=== PATIENT | female | born 1965 | race Caucasian/White ===

== ENCOUNTER 2021-02-20 09:16 | Inpatient (IN) ==
[2021-02-20] MEDS ORDERED: PIPERACILLIN/TAZOBACTAM 4.5 GM/120 ML BAG IV ONE (09:41)
[2021-02-20] MEDS ORDERED: PIPERACILL/TAZOBAC CONSULT ACTIVE PRN ×3 (09:41→16:12)
[2021-02-20] MEDS ORDERED: SODIUM CHLORIDE 0.9% 1000ML 1,000 ML IV ONE (09:41)
[2021-02-20 09:43] LABS: Basophils # (auto) 0.01 K/uL (0-0.2); Basophils % (auto) 0.1 %; Eosinophils # (auto) 0.09 K/uL (0-0.5); Eosinophils % (auto) 0.6 %; Hematocrit (blood only) 37.3 % (37-47); Hemoglobin 12.8 g/dL (12.0-16.0); Immature Granulocytes # (auto) 0.04 K/uL (0.00-0.02); Immature Granulocytes % (auto) 0.3 %; Lymphocytes # (auto) 1.62 K/uL (1.2-3.4); Lymphocytes % (auto) 10.3 %; Mean Corpuscular Hemoglobin 28.8 pg (25-34); Mean Corpuscular Hgb Conc 34.3 g/dL (32-36); Mean Corpuscular Volume 83.8 fL (80-100); Monocytes # (auto) 0.54 K/uL (0.11-0.59); Monocytes % (auto) 3.4 %; Neutrophils # (auto) 13.44 K/uL (1.4-6.5); Neutrophils % (auto) 85.3 %; Platelet Count 299 K/uL (130-400); RDW Coefficient of Variation 14.5 % (11.5-14.5); RDW Standard Deviation 44.4 fL (36.4-46.3); Red Blood Count 4.45 M/uL (4.2-5.4); White Blood Count 15.74 K/uL (4.8-10.8)
[2021-02-20 10:00] LABS: Alanine Aminotransferase 17 U/L (12-78); Albumin Level 2.6 gm/dl (3.4-5.0); Aspartate Aminotransferase 30 U/L (15-37); BUN Creatinine Ratio 24.2 (10-20); Blood Urea Nitrogen 20 mg/dl (7-18); Calcium 9.3 mg/dl (8.5-10.1); Carbon Dioxide 22 mmol/L (21-32); Chloride 97 mmol/L (98-107); Creatinine Clr Calc Pharmacy 72.8 ml/min; Est GFR (African American) 91.3 ml/min; Est GFR (Non-African American) 78.8 ml/min; Glucose 123 mg/dl (70-99); Potassium 3.3 mmol/L (3.5-5.1); Sodium 133 mmol/L (136-145)
[2021-02-20 10:05] LABS: Albumin Globulin Ratio 0.5 (0.9-2); Alkaline Phosphatase 122 U/L (45-117); Bilirubin,Total 0.9 mg/dl (0.2-1); Globulin 5.8 gm/dl (2.5-4.0); NT Pro B Type Natriuretic Pept 622 pg/ml (0-900); Total Protein 8.4 gm/dl (6.4-8.2); Troponin I < 0.015 ng/ml (0-0.045)
--- NOTE | 2021-02-20 10:17 | XRay Report ---
XR chest 1V portable CLINICAL HISTORY: Dyspnea COMPARISON STUDY: No previous studies for comparison. FINDINGS: There is no pneumothorax or pleural effusion. Lung volumes are mildly diminished. There is interstitial thickening and bilateral opacities, greater within the left lung. Cardiac size is normal . Mediastinal contours are normal. IMPRESSION: Interstitial thickening and bilateral opacities, greater within the left lung. The findi ngs favor an infectious process such as viral pneumonia. Radiographic follow-up to ensure resolution is recommended. ACT 112: Negative or not required by law. Electronically signed by: Nikita Doyle M.D. 02/20/2021 10:15 AM
[2021-02-20] MEDS ORDERED: ALBUT/IPRATROP 3MG/0.5MG NEB 3 ML VIAL NEB STA (10:50)
--- NOTE | 2021-02-20 10:53 | Emergency Department Note ---
History of Present Illness General Chief complaint: Shortness of Breath/Dyspnea Stated complaint: OPEN WOUND ON R FOOT, SOB Time Seen by Provider: 02/20/21 09:33 History of Present Illness 55-year-old female presents to the ED with a chief complaint of shortness of breath. The patient states that she has been feeling short of breath since Thursday or Thursday. She states that she is typically treated at [facility] but they were on divert so she was brought here. The patient states that she had a right foot ulceration that busted open on Thursday. She has been taking Keflex for this. She reports some associated nausea and vomiting. She reports increased shortness of breath. She has a history of eosinophilic asthma. EMS brought her in to the ED for evaluation. She was 80% saturations on room air. She does not use oxygen at home. She also reports she has not taken her usual medications for the past 4 to 5 days. Home Medications Medication Instructions Recorded Confirmed Type budesonide-formoterol HFA 160 2 puff INHALATION BID 02/20/21 02/20/21 History mcg-4.5 mcg/actuation aerosol inhaler (Symbicort) cephalexin 500 mg capsule 500 mg PO QID 02/20/21 02/20/21 History cetirizine 10 mg tablet 10 mg PO DAILY 02/20/21 02/20/21 History clonidine 0.3 mg/24 hr weekly 0.3 mg TOPICAL WK 02/20/21 02/20/21 History transdermal patch hydroxychloroquine 200 mg tablet 200 mg PO BID 02/20/21 02/20/21 History labetalol 100 mg tablet 100 mg PO Q12H 02/20/21 02/20/21 History montelukast 10 mg tablet 10 mg PO PM 02/20/21 02/20/21 History naproxen 500 mg tablet 1,000 mg PO DAILY 02/20/21 02/20/21 History omeprazole 20 mg capsule,delayed 20 mg PO DAILY 02/20/21 02/20/21 History release ondansetron 4 mg disintegrating 4 mg PO Q8H PRN 02/20/21 02/20/21 History tablet Allergies Allergy/AdvReac Type Severity Reaction Status Date / Time azithromycin Allergy Severe Entire Arm Unverified 02/20/21 10:55 Swelling Opioids - Morphine Analogues AdvReac Severe Vomiting/ Unverified 02/20/21 10:55 "It makes my skin crawl" Opioids-Meperidine and AdvReac Severe Vomiting/ Unverified 02/20/21 10:55 Related "It makes my skin crawl" Opioids-Methadone and Related AdvReac Severe Vomiting/ Unverified 02/20/21 10:55 "It makes my skin crawl" Past Med/Surg History Social History Smoking Status: Former smoker Review of Systems A total of 10 systems reviewed and were otherwise negative Physical Exam Vital Signs Vital Signs - 24 hr 02/20/21 09:05 02/20/21 09:06 02/20/21 09:23 Temperature 37.5 C Temperature Source Oral Pulse Rate 86 Pulse Rate [Radial] Pulse Rhythm Regular Pulse Strength Normal Respiratory Rate 24 Respiratory Effort / Characteristics Spontaneous Labored Short of Breath SOB on Exertion Spontaneous Labored Short of Breath SOB on Exertion Respiratory Depth Deep Deep Respiratory Pattern Regular Tachypnea Regular Blood Pressure [Right Arm] 197/92 H Blood Pressure Mean [Right Arm] 127 Blood Pressure Position [Right Arm] Lying Pulse Oximetry 84 L 82 L Oxygen Delivery Method Room Air Room Air Oxygen Flow Rate 0 Sepsis Recent Fever Within 48 Hours Yes Sepsis New/Unexplained Change in Mental Status No Sepsis Action Taken by Nursing No Action Required Oxygen Flow Rate - Titration 5 Pulse Oximetry Post Tiitration 91 02/20/21 09:55 02/20/21 11:09 02/20/21 11:18 Temperature Temperature Source Pulse Rate Pulse Rate [Radial] 77 70 Pulse Rhythm Pulse Strength Respiratory Rate 22 20 Respiratory Effort / Characteristics Spontaneous Respiratory Depth Respiratory Pattern Blood Pressure [Right Arm] 183/92 H Blood Pressure Mean [Right Arm] 122 Blood Pressure Position [Right Arm] Pulse Oximetry 72 L 93 89 L Oxygen Delivery Method Room Air Nasal Cannula Nasal Cannula Oxygen Flow Rate 5 5 Sepsis Recent Fever Within 48 Hours Sepsis New/Unexplained Change in Mental Status Sepsis Action Taken by Nursing Oxygen Flow Rate - Titration Pulse Oximetry Post Tiitration CONSTITUTIONAL/VITAL SIGNS: Reviewed / noted above. GENERAL: Non-toxic in appearance. INTEGUMENTARY: Warm, dry, and [place]. HEAD: Normocephalic. EYES: without scleral icterus or trauma. ENT/OROPHARYNX: clear and moist. LYMPHADENOPATHY/NECK: Is supple without lymphadenopathy or meningismus. RESPIRATORY: Diminished but clear bilaterally. Some scattered wheezes and crackles. Mild increased increased work of breathing. CARDIOVASCULAR: Regular rate and rhythm. GI/ABDOMEN: Soft and nontender. No organomegaly or pulsatile mass. EXTREMITIES: Warm and well perfused. There is a ruptured blister on the bottom of the right foot that appears to be mildly erythematous. BACK: No CVA tenderness. NEUROLOGICAL: Intact without focal deficits. PSYCHIATRIC: normal affect. MUSCULOSKELETAL: Normally developed with good muscle tone. TRIAGE NURSING DOCUMENTATION REVIEWED. Course Administered Medications Discontinued Medications Albuterol (Albut/Ipratrop 3mg/0.5mg Neb 3 Ml Vial) 3 ml NEB NOW STA Stop: 02/20/21 10:51 Last Admin: 02/20/21 11:17 Dose: 3 ml Documented by: [id number] Piperacillin Sod/Tazobactam Sod (Zosyn) 4.5 gm in 120 mls @ 240 mls/hr IV NOW ONE Stop: 02/20/21 10:10 Last Admin: 02/20/21 11:05 Dose: 240 mls/hr Documented by: [id number] Sodium Chloride (Nss 1000ml) 1,000 mls @ 999 mls/hr IV .Q1H1M ONE Stop: 02/20/21 10:41 Last Admin: 02/20/21 11:06 Dose: 999 mls/hr Documented by: [id number] Critical Care Time Critical Care Time: Yes I have personally spent 30 minutes of critical care time in the direct management of this patient. This includes bedside care, interpretation of diagnostic studies, and testing, discussion with consultants, patient, and family members, and other required patient management activities. This 30 minutes is in excess of all separately billable procedures. Medical Decision Making Differential Diagnosis The differential was considered includes acute myocardial infarction, acute coronary syndrome, myocarditis, pericarditis, pericardial effusions /tamponad, esophageal perforation, pulmonary embolism, pneumonia, pneumothorax, cardiomyopathy, congestive heart, anemia , COPD/asthma exacerbation. Medical Records Attestation: I reviewed the patient's medical records. Home Medications Current Medication List: was personally reviewed by me Laboratory Data Attestation: I reviewed the patient's lab results. Result diagrams: 02/20/21 09:10 02/20/21 09:10 Lab Results 02/20/21 02/20/21 02/20/21 Range/Units 09:10 09:10 09:10 WBC 15.74 H (4.8-10.8) K/uL RBC 4.45 (4.2-5.4) M/uL Hgb 12.8 (12.0-16.0) g/dL Hct 37.3 (37-47) % MCV 83.8 (80-100) fL MCH 28.8 (25-34) pg MCHC 34.3 (32-36) g/dL RDW Std Deviation 44.4 (36.4-46.3) fL RDW Coeff of Rohit 14.5 (11.5-14.5) % Plt Count 299 (130-400) K/uL MPV 11.0 H (7.4-10.4) fL Immature Gran % (Auto) 0.3 % Neut % (Auto) 85.3 % Lymph % (Auto) 10.3 % [place] % (Auto) 3.4 % Eos % (Auto) 0.6 % Baso % (Auto) 0.1 % Neut # (Auto) 13.44 H (1.4-6.5) K/uL Lymph # (Auto) 1.62 (1.2-3.4) K/uL [place] # (Auto) 0.54 (0.11-0.59) K/uL Eos # (Auto) 0.09 (0-0.5) K/uL Baso # (Auto) 0.01 (0-0.2) K/uL Immature Gran # (Auto) 0.04 H (0.00-0.02) K/uL PT Cancelled INR Cancelled APTT Cancelled PTT Ratio Cancelled Sodium 133 L (136-145) mmol/L Potassium 3.3 L (3.5-5.1) mmol/L Chloride 97 L (98-107) mmol/L Carbon Dioxide 22 (21-32) mmol/L Anion Gap 13.0 H (3-11) BUN 20 H (7-18) mg/dl Creatinine 0.84 (0.6-1.2) mg/dl Est Cr Clr Drug Dosing 72.8 ml/min Est GFR ( Amer) 91.3 ml/min Est GFR (Non-Af Amer) 78.8 ml/min BUN/Creatinine Ratio 24.2 H (10-20) Glucose 123 H (70-99) mg/dl Lactate (0.4-2.0) mmol/L Calcium 9.3 (8.5-10.1) mg/dl Total Bilirubin 0.9 (0.2-1) mg/dl AST 30 (15-37) U/L ALT 17 (12-78) U/L Alkaline Phosphatase 122 H (45-117) U/L Troponin I < 0.015 (0-0.045) ng/ml NT-Pro-B Natriuret Pep 622 (0-900) pg/ml Total Protein 8.4 H (6.4-8.2) gm/dl Albumin 2.6 L (3.4-5.0) gm/dl Globulin 5.8 H (2.5-4.0) gm/dl Albumin/Globulin Ratio 0.5 L (0.9-2) COVID-19 Eval Order SARS-CoV-2 (PCR) (Negative) 02/20/21 02/20/21 02/20/21 Range/Units 09:56 09:56 10:35 WBC (4.8-10.8) K/uL RBC (4.2-5.4) M/uL Hgb (12.0-16.0) g/dL Hct (37-47) % MCV (80-100) fL MCH (25-34) pg MCHC (32-36) g/dL RDW Std Deviation (36.4-46.3) fL RDW Coeff of Rohit (11.5-14.5) % Plt Count (130-400) K/uL MPV (7.4-10.4) fL Immature Gran % (Auto) % Neut % (Auto) % Lymph % (Auto) % [place] % (Auto) % Eos % (Auto) % Baso % (Auto) % Neut # (Auto) (1.4-6.5) K/uL Lymph # (Auto) (1.2-3.4) K/uL [place] # (Auto) (0.11-0.59) K/uL Eos # (Auto) (0-0.5) K/uL Baso # (Auto) (0-0.2) K/uL Immature Gran # (Auto) (0.00-0.02) K/uL PT INR APTT PTT Ratio Sodium (136-145) mmol/L Potassium (3.5-5.1) mmol/L Chloride (98-107) mmol/L Carbon Dioxide (21-32) mmol/L Anion Gap (3-11) BUN (7-18) mg/dl Creatinine (0.6-1.2) mg/dl Est Cr Clr Drug Dosing ml/min Est GFR ( Amer) ml/min Est GFR (Non-Af Amer) ml/min BUN/Creatinine Ratio (10-20) Glucose (70-99) mg/dl Lactate 1.6 (0.4-2.0) mmol/L Calcium (8.5-10.1) mg/dl Total Bilirubin (0.2-1) mg/dl AST (15-37) U/L ALT (12-78) U/L Alkaline Phosphatase (45-117) U/L Troponin I (0-0.045) ng/ml NT-Pro-B Natriuret Pep (0-900) pg/ml Total Protein (6.4-8.2) gm/dl Albumin (3.4-5.0) gm/dl Globulin (2.5-4.0) gm/dl Albumin/Globulin Ratio (0.9-2) COVID-19 Eval Order Covid19 at [facility] SARS-CoV-2 (PCR) NEGATIVE (Negative) 02/20/21 Range/Units 10:35 WBC (4.8-10.8) K/uL RBC (4.2-5.4) M/uL Hgb (12.0-16.0) g/dL Hct (37-47) % MCV (80-100) fL MCH (25-34) pg MCHC (32-36) g/dL RDW Std Deviation (36.4-46.3) fL RDW Coeff of Rohit (11.5-14.5) % Plt Count (130-400) K/uL MPV (7.4-10.4) fL Immature Gran % (Auto) % Neut % (Auto) % Lymph % (Auto) % [place] % (Auto) % Eos % (Auto) % Baso % (Auto) % Neut # (Auto) (1.4-6.5) K/uL Lymph # (Auto) (1.2-3.4) K/uL [place] # (Auto) (0.11-0.59) K/uL Eos # (Auto) (0-0.5) K/uL Baso # (Auto) (0-0.2) K/uL Immature Gran # (Auto) (0.00-0.02) K/uL PT 10.9 INR 1.1 APTT 27.9 PTT Ratio 1.1 Sodium (136-145) mmol/L Potassium (3.5-5.1) mmol/L Chloride (98-107) mmol/L Carbon Dioxide (21-32) mmol/L Anion Gap (3-11) BUN (7-18) mg/dl Creatinine (0.6-1.2) mg/dl Est Cr Clr Drug Dosing ml/min Est GFR ( Amer) ml/min Est GFR (Non-Af Amer) ml/min BUN/Creatinine Ratio (10-20) Glucose (70-99) mg/dl Lactate (0.4-2.0) mmol/L Calcium (8.5-10.1) mg/dl Total Bilirubin (0.2-1) mg/dl AST (15-37) U/L ALT (12-78) U/L Alkaline Phosphatase (45-117) U/L Troponin I (0-0.045) ng/ml NT-Pro-B Natriuret Pep (0-900) pg/ml Total Protein (6.4-8.2) gm/dl Albumin (3.4-5.0) gm/dl Globulin (2.5-4.0) gm/dl Albumin/Globulin Ratio (0.9-2) COVID-19 Eval Order SARS-CoV-2 (PCR) (Negative) Imaging Data Radiologist's Impression: Chest X-Ray 02/20/21 09:33 XR chest 1V portable CLINICAL HISTORY: Dyspnea COMPARISON STUDY: No previous studies for comparison. FINDINGS: There is no pneumothorax or pleural effusion. Lung volumes are mildly diminished. There is interstitial thickening and bilateral opacities, greater wi thin the left lung. Cardiac size is normal. Mediastinal contours are normal. IMPRESSION: Interstitial thickening and bilateral opacities, greater within the left lung. The findings favor an infectious process such as viral pneumonia. Radiographic follow-up to ensure resolution is recommended. ACT 112: Negative or not required by law. Electronically signed by: Nikita Doyle M.D. 02/20/2021 10:15 AM ECG Data Attestation: I personally reviewed and interpreted this ECG as follows: Additional Comments: Twelve-lead EKG: Per my interpretation shows a sinus rhythm at a rate of 84. No ST elevation. No PVCs. Normal QTC. MDM Narrative 55-year-old female presents to the ED with a chief complaint of increased shortness of breath for the past several days. Vital signs reveal hypertension. Oxygen saturations were in the 70s on room air. She is saturating in the 90s on nasal cannula oxygen. Chest x-ray shows interstitial thickening and bilateral opacities greater on the left. Favors infectious process such as a viral pneumonia. Covid swab was negative. White blood cell count is elevated at 15. BUN is 20. Troponin was negative and BNP is normal. Potassium was 3.3. The patient was treated with IV cefepime. She was given IV fluids and albuterol nebulizer. She will be seen by the hospitalist for further inpatient evaluation and care. Impression & Plan Bilateral interstitial pneumonia, Hypoxia Discharge Plan Visit Data Chief Complaint: Shortness of Breath/Dyspnea Stated Complaint: OPEN WOUND ON R FOOT, SOB ED Provider: Get Clemens Discharge Problem: Bilateral interstitial pneumonia, Hypoxia Patient Disposition: Being Evaluated by Hospitalist Forms Stand Alone Forms: My [facility] [employer]. Prescriptions Prescriptions: No Action ondansetron 4 mg Tablet,Disintegrating 4 mg PO Q8H PRN (Reason: Nausea) RF: 0 cetirizine 10 mg tablet 10 mg PO DAILY RF: 0 cephalexin 500 mg capsule 500 mg PO QID RF: 0 omeprazole 20 mg capsule,delayed release(DR/EC) 20 mg PO DAILY RF: 0 montelukast 10 mg tablet 10 mg PO PM RF: 0 clonidine 0.3 mg/24 hr patch weekly 0.3 mg topical WK RF: 0 hydroxychloroquine 200 mg tablet 200 mg PO BID RF: 0 labetalol 100 mg tablet 100 mg PO Q12H RF: 0 naproxen 500 mg tablet 1,000 mg PO DAILY RF: 0 budesonide-formoterol [Symbicort] 160-4.5 mcg/actuation HFA aerosol inhaler 2 puff INHALATION BID RF: 0 Referrals Referrals: PCP,NO [Physician] -
[2021-02-20 10:55] LABS: INR 1.1 (0.9-1.1); Partial Thromboplastin Ratio 1.1; Partial Thromboplastin Time 27.9 Seconds (21.0-31.0); Prothrombin Time 10.9 Seconds (9.0-12.0)
[2021-02-20] MEDS ORDERED: DOXYCYCLINE HYCLATE 100 MG in DEXTROSE 5% 100 ML IV STA (12:17)
--- NOTE | 2021-02-20 12:35 | History & Physical Report ---
Date of Service February 20, 2021 Assessment & Plan (1) Pneumonia: Plan: Bilateral opacities, WBC 15, fever, sputum production, oxygen requirement - Viral vs. Bacterial vs. worsening of disease - Zosyn 4.5 gm IV q8 - Doxycyline 100mg IV q12 - Methylpred 80mg IV now - then BID - CRP 30.4, PCT 0.35 - BIOfire pending - CT of the chest - oxygen support to keep SPO2 >88% - Pulmonary consulted- appreciate assistance (2) Hypoxia: Plan: Acute hypoxic respiratory failure As above - Nebulizers q6 hour scheduled and q4 prn - improved since arrival - currently on Oxymax with SPO2 94%- with nebulizer SPo2 increased to 98% - Continue THONG, ICS/LABA, -NC/HFNC/CPAP/BiPAP/oxymask (3) Eosinophilic asthma: Plan: Diagnosed when she was younger as she reports - unsure of diagnostics- she also endorses that she never thinks she has had a bronchoscopy - Sputum EOS sent- however will start on steroids now anyway - Continue Cetrizine, and montelukast - nebulizers as above - CRP on admission is 30.4 - PCT 0.35 (4) Disorder of lung with Sjogren's syndrome: Plan: As above (5) Pulmonary fibrosis: Plan: Patient reports that she follows closely with 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 and her case is mild- - she has significant disease on her mother's side of the family and endorses 4- 5 of her siblings has from this - appreciate pulmonary assistance - Xray faxed over from [facility] from January 02- reported as COPD with subplueral intersitial disease/fibroses stable without change (6) HTN (hypertension): Plan: Continue clonidine and labtelol - ECHO performed in January 15, 2021 - report faxed from [facility] - EF 60-65%, normal wall motion, tricial MR, mild with moderate AR, (7) Foot abrasion: Plan: With blister as originating injury - surrounding tissue not erythemic- but tender with palpation - follow clinically for now- await foot xray to evaluate for deeper infection and/or foreign body (8) Rheumatoid arteritis: Plan: With contractures in hands that gets "worsse when she is ill" - on hydroxychlorquine likely for both RA and Sjrogens- continue - Continue Naprosyn - Continue omeprazole while on NSAID and Steroid- if n/v continue will change to IV (9) Hypokalemia: Plan: Due to decreased oral intake - KCL 20meq BID for today - follow with BMP in the morning History of Present Illness Chief Complaint: SOB Primary Care Provider: Jonathan Munguia PA-C 55 YOF with past medical history of: Eosinophilic asthma, Sjorgen's disease, mild pulmonary fibrosis, HTN, RA, GERD. Patient is normal patient of [facility]. Patient was brought here today for increasing in shortness of breath, cough. Patient endorses that this acutely got worse with increase in thick white sputum production as well as vomiting. This started on Thursday after a large blister on the bottom of her right foot burst. She initially went hiking last weekend on a trail in [place]. Developed large "golf-ball" sized blister that then popped draining red/yellow fluid. She went to urgent care and was placed on Keflex. She came to the EMD today with tachypnea and hypoxia via EMS secondary to [place] being on divert. She was recorded at 72% on RA on arrival and was placed to 5LNC with increase in SPo2 to 88-92%, received a nebulizer and CXR. Her CXR has bilateral opacities LT>RT, Her COVID test is negative. She was given a dose of Zosyn IV and hospitalist team was called for admission. Patient is tachypnea and conversationally short of breath during interview. She states that normally every 3 months she is put on prednisone taper and Doxycycline for her Asthma. She is on hydroxychloroquine for her RA, which when she gets sick she develops contractors in her hands. I was able to get in touch with her Clinical Research Management Associate Dr. Rod at [facility]. He is uncertain of her EOS asthma being diagnosed via biopsy but is leaning strongly towards No. Patient will be admitted to PCU for pulmonary support and treatment. Will cove r her PNA with Zosyn and Doxycyline, Sputum EOS sent, BioFIRE sent, PCT and CRP. Blood cultures were sent in the EMD. With her hypoxia and her RR discussed case with Dr. Walker from pulmonary. Will give her steroids upfront at this time with 80mg Methylpred then 40mg IV BID starting tomorrow. If able to lay flat for CT scan of the chest would like to obtain. Will get X-ray of her foot to evaluate for osteo or foriegn object as this is very tender to surrounding area. No drainage or erythema around the site. Significant family history of pulmonary fibrosis per the patient. She has received her COVID vaccine and her COVID test on admission is NEGATIVE. Allergies Allergy/AdvReac Type Severity Reaction Status Date / Time azithromycin Allergy Severe Entire Arm Unverified 02/20/21 10:55 Swelling Opioids - Morphine Analogues AdvReac Severe Vomiting/ Unverified 02/20/21 10:55 "It makes my skin crawl" Opioids-Meperidine and AdvReac Severe Vomiting/ Unverified 02/20/21 10:55 Related "It makes my skin crawl" Opioids-Methadone and Related AdvReac Severe Vomiting/ Unverified 02/20/21 10:55 "It makes my skin crawl" Home Medications Medication Instructions Recorded Confirmed Type budesonide-formoterol HFA 160 2 puff INHALATION BID 02/20/21 02/20/21 History mcg-4.5 mcg/actuation aerosol inhaler (Symbicort) cephalexin 500 mg capsule 500 mg PO QID 02/20/21 02/20/21 History cetirizine 10 mg tablet 10 mg PO DAILY 02/20/21 02/20/21 History clonidine 0.3 mg/24 hr weekly 0.3 mg TOPICAL WK 02/20/21 02/20/21 History transdermal patch hydroxychloroquine 200 mg tablet 200 mg PO BID 02/20/21 02/20/21 History labetalol 100 mg tablet 100 mg PO Q12H 02/20/21 02/20/21 History montelukast 10 mg tablet 10 mg PO PM 02/20/21 02/20/21 History naproxen 500 mg tablet 1,000 mg PO DAILY 02/20/21 02/20/21 History omeprazole 20 mg capsule,delayed 20 mg PO DAILY 02/20/21 02/20/21 History release ondansetron 4 mg disintegrating 4 mg PO Q8H PRN 02/20/21 02/20/21 History tablet Past Med/Surg History Medical History (Updated 02/20/21 @ 15:36 by Pardeep Walker MD) Acute respiratory failure with hypoxia Disorder of lung with Sjogren's syndrome Eosinophilic asthma HTN (hypertension) [place] Pulmonary fibrosis Rheumatoid arteritis Sjogren's disease Family History (Updated 02/20/21 @ 13:32 by MAURILIO Watkins) Father Rheumatoid arthritis All with PF, from intubation with PF, as well as sister Sister Rheumatoid arthritis Lung disease Grandmother Rheumatoid arthritis Lung disease Grandmother No problems noted. Mother Lung disease mother and 5 siblings from PF Other Asthma Diabetes Hypertension Social History Smoking Status: Former smoker Second Hand Exposure: No; Hx Alcohol Use: No Hx Substance Use: No Preferred Language: Estonian Communication Ability: Effective Laboratory Asst Required: No Beliefs That Will Affect Care: None Current Living Situation: Significant Other Feels Safe at Home: Yes Assistive Devices: None Review of Systems Review of Systems: REVIEW OF SYSTEMS: Constitutional: (+) fever, sweats or chills Eyes: No diplopia, no worsening or blurred vision ENT: normal hearing, no trouble swallowing Respiratory: (+) cough, sputum, dyspnea at rest or on exertion Cardiovascular: No chest pain, tightness or palpitations Abdomen: (+) nausea, vomiting, NO diarrhea or constipation Musculoskeletal: No joint pain, calf pain, swelling Neurologic: No weakness, numbness/tingling, or balance problems Psychiatric: No anxiety or depression Skin: No rash or itch Physical Exam Physical Exam: PHYSICAL EXAM: General: awake, alert, no apparent distress Head: Normocephalic, atraumatic ENT: PERRL, EOMI, no pharyngeal exudate, mucous membranes moist Neuro: AAO x 3, speech clear and appropriate, strength intact bilaterally 5/5, sensation intact and equal all extremities and dermatomes, no pronator drift Chest: equal rise and fall of the chest, tachypneic, scattered rhonchi, inspiratory wheeze in bases, decreased air movment in base, on 5LNC- to oxymask, Cardiac: Regular rate and rhythm, telemetry reviewed, skin warm dry, cap refill <3 seconds, peripheral pulses +2 no JVD, no murmur, no JVD, no edema GI: NABS x 4 quadrants, soft, nontender to palpation, no rebound, guarding or tenderness : Spontaneously voiding, no pain, no CVA tenderness, Extremities: Normal inspection, no peripheral edema or erythema, calfs nontender to palpation Psych: Normal mood and affect Skin: right foot blister- popped- tender to palpation plantar surface Results & Data Results & Data ([facility]) Vital Signs (Past 12 Hours) Vital Signs Temp Pulse Pulse Resp BP Pulse Ox 02/20/21 11:18 70 20 89 L 02/20/21 11:09 77 22 183/92 H 93 02/20/21 09:55 72 L 02/20/21 09:23 82 L 02/20/21 09:06 197/92 H 02/20/21 09:05 37.5 C 86 24 84 L Laboratory Results Abnormal lab results 02/20/21 02/20/21 02/20/21 Range/Units 09:10 09:10 11:37 WBC 15.74 H (4.8-10.8) K/uL MPV 11.0 H (7.4-10.4) fL Neut # (Auto) 13.44 H (1.4-6.5) K/uL Immature Gran # (Auto) 0.04 H (0.00-0.02) K/uL Sodium 133 L (136-145) mmol/L Potassium 3.3 L (3.5-5.1) mmol/L Chloride 97 L (98-107) mmol/L Anion Gap 13.0 H (3-11) BUN 20 H (7-18) mg/dl BUN/Creatinine Ratio 24.2 H (10-20) Glucose 123 H (70-99) mg/dl Alkaline Phosphatase 122 H (45-117) U/L C-Reactive Protein 30.40 H (0-0.29) mg/dl Total Protein 8.4 H (6.4-8.2) gm/dl Albumin 2.6 L (3.4-5.0) gm/dl Globulin 5.8 H (2.5-4.0) gm/dl Albumin/Globulin Ratio 0.5 L (0.9-2) Diagnostic Findings Chest X-Ray 02/20/21 09:33 XR chest 1V portable CLINICAL HISTORY: Dyspnea COMPARISON STUDY: No previous studies for comparison. FINDINGS: There is no pneumothorax or pleural effusion. Lung volumes are mildly diminished. There is interstitial thickening and bilateral opacities, greater within the left lung. Cardiac size is normal. Mediastinal contours are normal. IMPRESSION: Interstitial thickening and bilateral opacities, greater within the left lung. The findings favor an infectious process such as viral pneumonia. Radiographic follow-up to ensure resolution is recommended. ACT 112: Negative or not required by law. Electronically signed by: Nikita Doyle M.D. 02/20/2021 10:15 AM Medications Administered Doxycycline Hyclate 100 mg/ (Dextrose) 110 mls @ 50 mls/hr IV NOW STA Stop: 02/20/21 14:28 Last Admin: 02/20/21 13:16 Dose: 50 mls/hr Documented by: [id number] Discontinued Medications Albuterol (Albut/Ipratrop 3mg/0.5mg Neb 3 Ml Vial) 3 ml NEB NOW STA Stop: 02/20/21 10:51 Last Admin: 02/20/21 11:17 Dose: 3 ml Documented by: [id number] Albuterol (Albuterol 0.5% Neb Soln 2.5 Mg/0.5 Ml Vial) 2.5 mg NEB NOW STA Stop: 02/20/21 12:41 Last Admin: 02/20/21 13:12 Dose: 2.5 mg Documented by: [id number] Piperacillin Sod/Tazobactam Sod (Zosyn) 4.5 gm in 120 mls @ 240 mls/hr IV NOW ONE Stop: 02/20/21 10:10 Last Infusion: 02/20/21 11:35 Dose: 0 mls/hr Documented by: [id number] Admin: 02/20/21 11:05 Dose: 240 mls/hr Documented by: [id number] Sodium Chloride (Nss 1000ml) 1,000 mls @ 999 mls/hr IV .Q1H1M ONE Stop: 02/20/21 10:41 Last Infusion: 02/20/21 12:07 Dose: 0 mls/hr Documented by: [id number] Admin: 02/20/21 11:06 Dose: 999 mls/hr Documented by: [id number] Methylprednisolone (Methylprednisolone 125 Mg/2 Ml Vial) 80 mg IV NOW STA Stop: 02/20/21 12:59 Last Admin: 02/20/21 13:19 Dose: 80 mg Documented by: [id number] Home Medications budesonide-formoterol HFA 160 mcg-4.5 mcg/actuation aerosol inhaler (Symbicort) 2 puff INHALATION BID 02/20/21 [History Confirmed 02/20/21] cephalexin 500 mg capsule 500 mg PO QID 02/20/21 [History Confirmed 02/20/21] cetirizine 10 mg tablet 10 mg PO DAILY 02/20/21 [History Confirmed 02/20/21] clonidine 0.3 mg/24 hr weekly transdermal patch 0.3 mg TOPICAL WK 02/20/21 [History Confirmed 02/20/21] hydroxychloroquine 200 mg tablet 200 mg PO BID 02/20/21 [History Confirmed 02/20/21] labetalol 100 mg tablet 100 mg PO Q12H 02/20/21 [History Confirmed 02/20/21] montelukast 10 mg tablet 10 mg PO PM 02/20/21 [History Confirmed 02/20/21] naproxen 500 mg tablet 1,000 mg PO DAILY 02/20/21 [History Confirmed 02/20/21] omeprazole 20 mg capsule,delayed release 20 mg PO DAILY 02/20/21 [History Confirmed 02/20/21] ondansetron 4 mg disintegrating tablet 4 mg PO Q8H PRN 02/20/21 [History Confirmed 02/20/21] Active Medications Doxycycline Hyclate 100 mg/ (Dextrose) 110 mls @ 50 mls/hr IV NOW STA Stop: 02/20/21 14:28 Last Admin: 02/20/21 13:16 Dose: 50 mls/hr Documented by: Methylprednisolone (Methylprednisolone 40 Mg/Ml Vial) 40 mg IV BID EDVIN Stop: 03/23/21 08:59 Miscellaneous Information (Piperacill/Tazobac Consult Active) 1 ea N/A UD PRN PRN Reason: Consult Stop: 03/22/21 09:40 ECG Additional Comments: Normal sinus rhythm Possible Left atrial enlargement Borderline ECG No previous ECGs available Code Status & VTE Plan Code Status CODE: Limitied- Do not intubate VTE: SCD's, Lovenox 40mg sub q daily Supervising Physician Co-Signing Physician Notes During face to face encounter with patient, obtained a physical and history. My history and physcial examination did not differ from above. I reviewed above note and agree with it. I discussed plan with RIZWAN Scherer and the patient. All questions were answered. Patient will be admitted for pneumonia. Will be placed on steroids and antibioitcs PG Care Time/CCT Total # of Minutes Spent Total Time Spent with Patient: Total time spent is greater than 50% in coordination of care (as documented) at patient's floor/unit and/or counseling patient: Coding Level of Care Code 63976 Initial Inpt Care Lvl 3 Diagnoses Pneumonia J18.9 Eosinophilic asthma J82.83 Disorder of lung with Sjogren's syndrome M35.02 Pulmonary fibrosis J84.10 HTN (hypertension) I10 Hypoxia R09.02 Foot abrasion S90.819A Rheumatoid arteritis M05.20 Hypokalemia E87.6
[2021-02-20] MEDS ORDERED: ALBUTEROL 0.5% NEB SOLN 2.5 MG/0.5 ML VIAL NEB STA (12:40)
[2021-02-20] MEDS ORDERED: methylPREDNISolone 125 MG/2 ML VIAL IV STA (12:58)
[2021-02-20 13:13] LABS: C Reactive Protein 30.4 mg/dl (0-0.29)
[2021-02-20 14:14] LABS: Adenovirus PCR Not Detected (NotDetected); Bordetella parapertussis PCR Not Detected (NotDetected); Bordetella pertussis PCR Not Detected (NotDetected); Chlamydia pneumoniae PCR Not Detected (NotDetected); Coronavirus 229E PCR Not Detected (NotDetected); Coronavirus CoV-2 (COVID19)PCR Not Detected (NotDetected); Coronavirus HKU1 PCR Not Detected (NotDetected); Coronavirus NL63 PCR Not Detected (NotDetected); Coronavirus OC43PCR Not Detected (NotDetected); Human Metapneumovirus PCR Not Detected (NotDetected); Influenza A PCR Not Detected (NotDetected); Influenza B PCR Not Detected (NotDetected); Mycoplasma pneumoniae PCR Not Detected (NotDetected); Parainfluenza Virus 1 PCR Not Detected (NotDetected); Parainfluenza Virus 2 PCR Not Detected (NotDetected); Parainfluenza Virus 3 PCR Not Detected (NotDetected); Parainfluenza Virus 4 PCR Not Detected (NotDetected); Respiratory Syncytial VirusPCR Not Detected (NotDetected); Rhinovirus/Enterovirus PCR Not Detected (NotDetected)
--- NOTE | 2021-02-20 14:49 | CT Scan Report ---
CT chest diagnostic wo con CLINICAL HISTORY: evaluate pneumonia lung infiltrates COMPARISON STUDY: No previous studies for comparison. CT DOSE: 812.15 mGycm TECHNIQUE: CT of the thorax was performed from the thoracic inlet to the lung bases. Images are revi ewed in the axial, sagittal, and coronal planes. IV contrast was not administered for this examinatio n. A dose lowering technique was utilized adhering to the principles of ALARA. FINDINGS: There is no axillary, supra clavicle or internal mammary lymphadenopathy seen. Mediastinal lymph node s are not enlarged. Thyroid: Visualized portion of thyroid gland shows no evidence of focal lesions. Esophagus is patulou s. Minimal hiatal hernia is seen. Thoracic aorta: The thoracic aorta is normal in course and caliber, noting standard 3 vessel arch izzy bryanna. Scattered calcifications of aortic wall are seen. Heart: The heart is normal in size and configuration, without pericardial effusion. Lungs and pleural spaces: Tracheobronchial tree is patent. Mild centrilobular and paraseptal upper lobe predominant emphysema is seen. Multifocal patchy areas of groundglass and septal thickening are seen throughout bilateral lungs whic h might represent multifocal pneumonia/Covid. No pleural effusion is seen. Upper abdomen: Partially visualized upper abdominal viscera is within normal limits. Skeletal structures: Multilevel degenerative changes of the spine. IMPRESSION: 1. Patchy areas of groundglass attenuation and septal thickening throughout bilateral lungs might re present multifocal atypical pneumonia/Covid. Short-term follow-up with CT of the chest without IV con trast on nonemergency basis in 4-6 weeks is suggested document resolution. 2. Mild emphysema. 3. Atherosclerosis. 4. The rest of findings as above. ACT 112: Positive. There are findings on this exam that require communication between the performing entity and the patient following Patient Test Result Information Act ([place] Act 112) guidelines. The above report was generated using voice recognition software. It may contain grammatical, syntax o r spelling errors. Electronically signed by: Kimber To DO 02/20/2021 2:48 PM
--- NOTE | 2021-02-20 15:28 | Pulmonary Consultation ---
Date of Consultation February 20, 2021 Assessment & Plan (1) Bilateral interstitial pneumonia: (2) Acute respiratory failure with hypoxia: (3) Rheumatoid arteritis: (4) Sjogren's disease: 55-year-old female with a past medical history of Sjogren's disorder, rheumatoid arthritis, asthma and tobacco abuse presenting to the ER due to hypoxemic respiratory failure. Groundglass opacities on CT chest: The differential for these findings is broad, but I favor an acute flare of interstitial lung disease. She reportedly has a history of Sjogren's disease. 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 I would like to get the records from her outpatient tin dipper prior to init iating an extensive work-up. I do think a bronchoscopy and/or lung biopsy may be useful. I am going to hold off on bronchoscopy today given her acute hypoxia. She is already been started on steroids due to the degree of her hypoxemia. Theoretically, this may alter the results of her bronchoscopy somewhat. Other considerations include acute eosinophilic pneumonia, exacerbation of chronic eosinophilic pneumonia, acute interstitial pneumonia and acute hypersensitivity pneumonitis. Certainly there may be a component of diastolic CHF. She is very hypertensive. proBNP was within normal limits. Please keep her n.p.o. overnight for the possibility of a bronchoscopy. I have ordered for an echo to evaluate for pulmonary hypertension in the setting of her Sjogren's disease. Outpatient PFTs will be beneficial to evaluate. Acute hypoxemia: Secondary to the above. Continue with 40 mg IV Solu-Medrol twice daily. Pneumonia difficult to rule out. Procalcitonin within normal limits. Atypical infection such as Legionella and Chlamydia psittacosis remains a possibility. Continue with doxycycline. No signs of viral pneumonia based on biofire respiratory panel and COVID-19 testing. Pulmonary continue to follow along with you. Thank you for the consult. History of Present Illness Reason for Consultation: Acute hypoxemic respiratory failure and concern for ILD exacerbation History of Present Illness 55-year-old female with a past medical history of Sjogren's disorder, rheumatoid arthritis, emphysema, hypertension and tobacco abuse presenting to the hospital due to increasing shortness of breath. She relates that she had a toe infection and was on cephalexin. There is an abscess that ruptured. Ever since that period time she has been feeling increasingly short of breath. She notes that her shortness of breath symptoms have been present since Thursday. She also has a largely nonproductive cough. No significant fevers. She has some chest tightness. She notes that last summer she was at [facility] and was diagnosed with "double pneumonia". 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 She follows with Dr. Mcguire in [facility]. She notes she previously had PFTs. She has never undergone a bronchoscopy or biopsy. She relates that she has a history of Sjogren's disease and rheumatoid arthritis and she currently takes hydroxychloroquine. She notes that there are several family members who have pulmonary fibrosis including a few that have . She was previously a smoker from . She smoked roughly half a pack per day. She has several dogs and 1 cat in her home. She denies any vaping or e-ci garette use. She smoked marijuana in her youth. 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 She relates that she may have been exposed to COVID-19 last year, but was never formally diagnosed with Covid pneumonia. Her COVID-19 testing is negative today including respiratory bio fire panel that was negative. She denies any hemoptysis. She does have chronic joint swelling and pain in her hands. She notes she has clubbing. Additionally, she describes nausea over the past week. She uses Symbicort and Spiriva at home. CT of her chest demonstrated mild upper lobe predominant emphysema and diffuse groundglass opacities with septal thickening bilaterally. Her CBC demonstrated mild leukocytosis of 15,740. No significant peripheral eosinophilia noted. Hyponatremia and hypokalemia present on her BMP. Creatinine stable at 0.84. LFTs largely unremarkable. Albumin low at 2.6. CRP elevated at 30.4. Procalcitonin 0.35. She was started on Zosyn and doxycycline. Allergies Allergy/AdvReac Type Severity Reaction Status Date / Time azithromycin Allergy Severe Entire Arm Unverified 02/20/21 10:55 Swelling Opioids - Morphine Analogues AdvReac Severe Vomiting/ Unverified 02/20/21 10:55 "It makes my skin crawl" Opioids-Meperidine and AdvReac Severe Vomiting/ Unverified 02/20/21 10:55 Related "It makes my skin crawl" Opioids-Methadone and Related AdvReac Severe Vomiting/ Unverified 02/20/21 10:55 "It makes my skin crawl" Home Medications Medication Instructions Recorded Confirmed Type budesonide-formoterol HFA 160 2 puff INHALATION BID 02/20/21 02/20/21 History mcg-4.5 mcg/actuation aerosol inhaler (Symbicort) cephalexin 500 mg capsule 500 mg PO QID 02/20/21 02/20/21 History cetirizine 10 mg tablet 10 mg PO DAILY 02/20/21 02/20/21 History clonidine 0.3 mg/24 hr weekly 0.3 mg TOPICAL WK 02/20/21 02/20/21 History transdermal patch hydroxychloroquine 200 mg tablet 200 mg PO BID 02/20/21 02/20/21 History labetalol 100 mg tablet 100 mg PO Q12H 02/20/21 02/20/21 History montelukast 10 mg tablet 10 mg PO PM 02/20/21 02/20/21 History naproxen 500 mg tablet 1,000 mg PO DAILY 02/20/21 02/20/21 History omeprazole 20 mg capsule,delayed 20 mg PO DAILY 02/20/21 02/20/21 History release ondansetron 4 mg disintegrating 4 mg PO Q8H PRN 02/20/21 02/20/21 History tablet Patient History Medical History (Updated 02/20/21 @ 15:36 by Pardeep Walker MD) Acute respiratory failure with hypoxia Disorder of lung with Sjogren's syndrome Eosinophilic asthma HTN (hypertension) [place] Pulmonary fibrosis Rheumatoid arteritis Sjogren's disease Family History (Updated 02/20/21 @ 13:32 by MAURILIO Watkins) Father Rheumatoid arthritis All with PF, from intubation with PF, as well as sister Sister Rheumatoid arthritis Lung disease Grandmother Rheumatoid arthritis Lung disease Grandmother No problems noted. Mother Lung disease mother and 5 siblings from PF Other Asthma Diabetes Hypertension Social History Smoking Status: Former smoker Review of Systems Review of Systems: 03/28 point ROS negative unless noted elsewhere Physical Exam Physical Exam: Constitutional: Patient appears to be in mild distress. She has an oxygen mask in place at 15 L/min. She is emotional at times. Eyes: Pupils are equal round and reactive to light. Conjunctivae are normal. Anicteric sclera. Ears nose, mouth and throat: Mallampati class 2. Normal posterior oropharynx. Uvula is midline. Neck: Trachea is midline. Visual inspection is normal. Respiratory: Diminished lung sounds bilaterally. Mildly tachypneic. Crackles noted in bilateral lower lobes. Cardiovascular: Regular rate and rhythm. No murmurs. No edema. Clubbing present although difficult to fully evaluate as she has nail [place]or[place] on. Gastrointestinal: Normal bowel sounds, soft, nontender and nondistended. No hepatosplenomegaly noted. Musculoskeletal: No cyanosis. Patient is able to move all extremities. Strength is 5 out of 5 in the upper and lower extremities. Skin: No rashes, warm dry and intact. Neurologic: No obvious focal neurological deficits seen. Psychiatric: Alert and oriented x3 with a euthymic affect. Results & Data Results & Data ([facility]) Vital Signs (Past 12 Hours) Vital Signs Temp Pulse Pulse Resp BP BP Pulse Ox 02/20/21 15:00 100 H 22 190/88 H 92 02/20/21 14:30 81 29 H 173/95 H 93 02/20/21 14:00 80 30 H 134/69 93 02/20/21 13:30 80 24 154/66 H 96 02/20/21 13:21 89 24 90 02/20/21 13:10 94 H 24 91 02/20/21 13:00 94 H 19 156/77 H 87 L 02/20/21 12:30 81 24 199/88 H 89 L 02/20/21 12:00 191/97 H 88 L 02/20/21 11:30 142/120 H 88 L 02/20/21 11:18 70 20 89 L 02/20/21 11:09 78 77 17 183/92 H 183/92 H 91 02/20/21 09:55 72 L 02/20/21 09:31 94 H 22 197/92 H 91 02/20/21 09:23 82 L 02/20/21 09:06 197/92 H 02/20/21 09:05 99.5 F 86 24 84 L PG Care Time/CCT Total # of Minutes Spent Total Time Spent with Patient: Total time spent is greater than 50% in coordination of care (as documented) at patient's floor/unit and/or counseling patient: Coding Level of Care Code 67918 Inpt Consult Level 5 Diagnoses Bilateral interstitial pneumonia J84.9 Acute respiratory failure with hypoxia J96.01 Rheumatoid arteritis M05.20 Sjogren's disease M35.00
[2021-02-20] MEDS ORDERED: PIPERACILLIN/TAZOBACTAM 3.375 GM in DEXTROSE 5% 100 ML IV ONE (16:00)
--- NOTE | 2021-02-20 16:03 | XRay Report ---
RIGHT FOOT 3 VIEWS CLINICAL HISTORY: Foreign body assessment. Foot infection. FINDINGS: 3 views of the right foot are obtained. No prior studies are available for comparison at e time of dictation. The skeletal structures are osteopenic. No fracture is seen. There is no bony er osion or periostitis. Mild osteoarthritic change is seen at the first metatarsophalangeal joint. Mild degenerative change is also seen in the midfoot. There is a dorsal calcaneal enthesophyte. No radiod ense foreign body is identified. Mild soft tissue swelling is suggested along the dorsal aspect of e foot. IMPRESSION: 1. No acute bony abnormality is identified. 2. No radiodense foreign body is identified as clinically queried. Electronically signed by: Dejon Boateng M.D. 02/20/2021 4:02 PM
[2021-02-20] MEDS ORDERED: ACETAMINOPHEN 325 MG TAB PO PRN (16:12)
[2021-02-20] MEDS ORDERED: ALBUTEROL 0.083% NEBU SOLN 3 ML VIAL NEB PRN (16:12)
[2021-02-20] MEDS ORDERED: PIPERACILLIN/TAZOBACTAM 4.5 GM in DEXTROSE 5% 100 ML IV SCH (16:12)
[2021-02-20] MEDS: CHECK CLONIDINE PATCH PLACEMENT SCH ×2 (18:02→23:05)
[2021-02-20] MEDS: cloNIDine HCL 0.3 MG/24 HR TRANSDERM SYS TD SCH (18:03)
[2021-02-20] MEDS: ENOXAPARIN INJ 40 MG/0.4 ML SYR SQ SCH (18:06)
[2021-02-20] MEDS: LABETALOL HCL 100 MG TAB PO SCH (18:09)
[2021-02-20] MEDS: ALBUTEROL 0.083% NEBU SOLN 3 ML VIAL NEB SCH ×2 (18:21→19:17)
--- NOTE | 2021-02-20 19:01 | Electrocardiogram Report ---
Test Reason : Blood Pressure : / mmHG Vent. Rate : 084 BPM Atrial Rate : 084 BPM P-R Int : 132 ms QRS Dur : 088 ms QT Int : 392 ms P-R-T Axes : 052 015 042 degrees QTc Int : 463 ms Normal sinus rhythm Possible Left atrial enlargement Borderline ECG No previous ECGs available Confirmed by Dejon Mijares ([id number]) on 02/20/2021 7:01:06 PM Referred By: BHARAT Confirmed By:Migel Mijares
[2021-02-20] MEDS: HYDROXYCHLOROQUINE SULFATE 200 MG TAB PO SCH (20:35)
[2021-02-20] MEDS: MONTELUKAST SODIUM 10 MG TABLET PO SCH (20:36)
[2021-02-20] MEDS: NAPROXEN 250 MG TAB PO SCH (20:36)
[2021-02-20] MEDS: POTASSIUM CHLORIDE CRTAB 20 MEQ TABCR PO SCH (20:36)
[2021-02-21] MEDS: ALBUTEROL 0.083% NEBU SOLN 3 ML VIAL NEB SCH ×4 (00:12→19:42)
[2021-02-21] MEDS: DOXYCYCLINE HYCLATE 100 MG in DEXTROSE 5% 100 ML IV SCH ×2 (00:20→13:02)
[2021-02-21] MEDS: PIPERACILLIN/TAZOBACTAM 3.375 GM in DEXTROSE 5% 100 ML IV SCH ×3 (00:20→16:06)
[2021-02-21] MEDS: LABETALOL HCL 100 MG TAB PO SCH ×2 (05:05→16:06)
[2021-02-21 07:17] LABS: Basophils # (auto) 0.01 K/uL (0-0.2); Basophils % (auto) 0.1 %; Hematocrit (blood only) 32.3 % (37-47); Hemoglobin 10.6 g/dL (12.0-16.0); Immature Granulocytes # (auto) 0.03 K/uL (0.00-0.02); Immature Granulocytes % (auto) 0.2 %; Lymphocytes # (auto) 0.76 K/uL (1.2-3.4); Lymphocytes % (auto) 4.9 %; Mean Corpuscular Hemoglobin 27.8 pg (25-34); Mean Corpuscular Hgb Conc 32.8 g/dL (32-36); Mean Corpuscular Volume 84.8 fL (80-100); Mean Platelet Volume 11.3 fL (7.4-10.4); Monocytes % (auto) 3.2 %; Neutrophils # (auto) 14.25 K/uL (1.4-6.5); Neutrophils % (auto) 91.6 %; Platelet Count 254 K/uL (130-400); RDW Coefficient of Variation 14.5 % (11.5-14.5); RDW Standard Deviation 44.7 fL (36.4-46.3); Red Blood Count 3.81 M/uL (4.2-5.4); White Blood Count 15.55 K/uL (4.8-10.8)
[2021-02-21 07:48] LABS: BUN Creatinine Ratio 24.2 (10-20); Calcium 8.9 mg/dl (8.5-10.1); Creatinine Clr Calc Pharmacy 76.4 ml/min; Est GFR (African American) 99.9 ml/min; Est GFR (Non-African American) 86.2 ml/min; Magnesium 2.4 mg/dl (1.8-2.4); Potassium 3.7 mmol/L (3.5-5.1)
[2021-02-21] MEDS: methylPREDNISolone 40 MG in SYRINGE 0 ML IV SCH ×2 (08:01→20:25)
[2021-02-21] MEDS: POTASSIUM CHLORIDE CRTAB 20 MEQ TABCR PO SCH ×2 (08:01→20:24)
[2021-02-21] MEDS: HYDROXYCHLOROQUINE SULFATE 200 MG TAB PO SCH ×2 (08:01→20:25)
[2021-02-21] MEDS: NAPROXEN 250 MG TAB PO SCH ×2 (08:02→20:24)
[2021-02-21] MEDS: PANTOprazole 40 MG TAB PO SCH (08:02)
[2021-02-21] MEDS: CETIRIZINE HCL 10 MG TABLET PO SCH (08:03)
[2021-02-21] MEDS: CHECK CLONIDINE PATCH PLACEMENT SCH ×3 (08:03→23:30)
[2021-02-21] MEDS ORDERED: NAPROXEN 250 MG TAB PO SCH (09:00)
[2021-02-21] MEDS: FLUTICASONE/VILANTEROL 200/25MCG 14 PUFFS/INHALER INH SCH (09:08)
[2021-02-21] MEDS: ENOXAPARIN INJ 40 MG/0.4 ML SYR SQ SCH (16:06)
--- NOTE | 2021-02-21 16:23 | XCELERA ---
[id number]
--- NOTE | 2021-02-21 17:37 | Pulmonology Progress Note ---
Date of Service February 21, 2021 Assessment & Plan (1) Bilateral interstitial pneumonia: (2) Acute respiratory failure with hypoxia: (3) Rheumatoid arteritis: (4) Sjogren's disease: Plan: 55-year-old female with a past medical history of Sjogren's disorder, rheumatoid arthritis, asthma and tobacco abuse presenting to the ER due to hypoxemic respiratory failure. Groundglass opacities on CT chest: The differential for these findings is broad, but I favor an acute flare of interstitial lung disease. She reportedly has a history of Sjogren's disease. 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 I was able to review some of her results on her cellphone regarding her outpatient work-up. She gave me permission to look at her outpatient records from [facility]. Interestingly, there was a Sjogren's panel which was negative that included SSA and SSB antibodies. She also had complement levels which were within normal limits. Rheumatoid factor and CCP antibodies were negative as well. These were completed earlier this year. She did have an [facility] screen which was positive. No titer was available for review. She relates that she sees a consulting analyst who is treating her for Sjogren's disease. She may have seronegative disease. Sjogren's is well known to cause airways disease and mimic asthma as well. A bronchoscopy as an outpatient may be beneficial to help rule out infectious etiology. She is clinically improving at this point and I would recommend continuing with steroid therapy and antibiotics to cover for atypical infectious etiology. I am going to discontinue Zosyn. Urine Legionella antigen is pending. Echocardiogram with evidence of grade 1 diastolic dysfunction and mild aortic valve sclerosis. No evidence of pulmonary hypertension was seen. Outpatient PFTs will be beneficial to evaluate the degree of her underlying disease. Acute hypoxemia: Secondary to the above. Continue with 40 mg IV Solu-Medrol twice daily. Pneumonia difficult to rule out. Procalcitonin within normal limits. Atypical infection such as Legionella and Chlamydia psittacosis remains a possibility. Continue with doxycycline. No signs of viral pneumonia based on biofire respiratory panel and COVID-19 testing. Pulmonary continue to follow along with you. Thank you for the consult. Admission and Anticipated Discharge Date Admission Date: February 20, 2021 Subjective Patient seen and examined at bedside this afternoon. She is feeling much better. Currently on 6 L oxygen mask saturating in the mid 90s. She is eating dinner. She still becomes short of breath with minimal exertion or speaking long sentences. She denies any nausea or vomiting today. She denies chest pain. Review of Systems Review of Systems: All systems reviewed & are unremarkable except as noted in HPI & below Physical Exam Physical Exam: Constitutional: Patient appears to be in mild distress. 6 L oxygen mask in place Eyes: Pupils are equal round and reactive to light. Conjunctivae are normal. Anicteric sclera. Ears nose, mouth and throat: Mallampati class 2. Normal posterior oropharynx. Uvula is midline. Neck: Trachea is midline. Visual inspection is normal. Respiratory: Diminished lung sounds bilaterally. Mildly tachypneic. Crackles noted in bilateral lower lobes. Cardiovascular: Regular rate and rhythm. No murmurs. No edema. Clubbing present although difficult to fully evaluate as she has nail [place] on. Gastrointestinal: Normal bowel sounds, soft, nontender and nondistended. No hepatosplenomegaly noted. Musculoskeletal: No cyanosis. Patient is able to move all extremities. Strength is 5 out of 5 in the upper and lower extremities. Skin: No rashes, warm dry and intact. Neurologic: No obvious focal neurological deficits seen. Psychiatric: Alert and oriented x3 with a euthymic affect. Results & Data Results & Data ([facility]) Vital Signs (Past 12 Hours) Vital Signs Temp Pulse Pulse Resp BP Pulse Ox 02/21/21 16:01 97.9 F 76 22 143/72 H 95 02/21/21 14:56 77 02/21/21 13:25 67 18 96 02/21/21 10:49 71 22 166/79 H 96 02/21/21 08:07 97.7 F 70 23 175/77 H 92 02/21/21 08:00 78 02/21/21 07:37 65 18 99 Vital signs, labs and imaging were personally reviewed PG Care Time/CCT Total # of Minutes Spent Total Time Spent with Patient: Total time spent is greater than 50% in coordination of care (as documented) at patient's floor/unit and/or counseling patient: Coding Level of Care Code 32675 Subseq Hosp Care Lvl 3 Diagnoses Bilateral interstitial pneumonia J84.9 Acute respiratory failure with hypoxia J96.01 Rheumatoid arteritis M05.20 Sjogren's disease M35.00
[2021-02-21] MEDS: MONTELUKAST SODIUM 10 MG TABLET PO SCH (20:24)
--- NOTE | 2021-02-21 22:38 | Hospitalist Progress Note ---
Date of Service February 21, 2021 Assessment & Plan (1) Pneumonia: Plan: Bilateral opacities, WBC 15, fever, sputum production, oxygen requirement - Viral vs. Bacterial vs. worsening of disease - Zosyn 4.5 gm IV q8 - Doxycyline 100mg IV q12 - Methylpred 80mg IV now - then BID - CRP 30.4, PCT 0.35 - BIOfire pending - CT of the chest - oxygen support to keep SPO2 >88% - Pulmonary consulted- appreciate assistance 02/21: Oxymask decreased from 12 liters to 6 liters continue solumedrol IV Q12H. (2) Hypoxia: Plan: Acute hypoxic respiratory failure As above - Nebulizers q6 hour scheduled and q4 prn - improved since arrival - currently on Oxymax with SPO2 94%- with nebulizer SPo2 increased to 98% - Continue THONG, ICS/LABA, -NC/HFNC/CPAP/BiPAP/oxymask (3) Eosinophilic asthma: Plan: Diagnosed when she was younger as she reports - unsure of diagnostics- she also endorses that she never thinks she has had a bronchoscopy - Sputum EOS sent- however will start on steroids now anyway - Continue Cetrizine, and montelukast - nebulizers as above - CRP on admission is 30.4 - PCT 0.35 (4) Disorder of lung with Sjogren's syndrome: Plan: As above (5) Pulmonary fibrosis: Plan: Patient reports that she follows closely with her cable puller and her case is mild- - she has significant disease on her mother's side of the family and endorses 4- 5 of her siblings has from this - appreciate pulmonary assistance - Xray faxed over from [facility] from January 02- reported as COPD with subplueral intersitial disease/fibroses stable without change (6) HTN (hypertension): Plan: Continue clonidine and labtelol - ECHO performed in January 15, 2021 - report faxed from [facility] - EF 60-65%, normal wall motion, tricial MR, mild with moderate AR, (7) Foot abrasion: Plan: With blister as originating injury - surrounding tissue not erythemic- but tender with palpation - follow clinically for now- await foot xray to evaluate for deeper infection and/or foreign body -consult wound care (8) Rheumatoid arteritis: Plan: With contractures in hands that gets "worsse when she is ill" - on hydroxychlorquine likely for both RA and Sjrogens- continue - Continue Naprosyn - Continue omeprazole while on NSAID and Steroid- if n/v continue will change to IV (9) Hypokalemia: Plan: Due to decreased oral intake - KCL 20meq BID for today - follow with BMP in the morning Admission and Anticipated Discharge Date Admission Date: February 20, 2021 Subjective Patient reports feeling better. She still requires oxygen, and she reports she does not take oxygen at home. Review of Systems Review of Systems: All systems reviewed & are unremarkable except as noted in HPI & below Physical Exam Physical Exam: General: awake, alert, no apparent distress Head: Normocephalic, atraumatic ENT: PERRL, EOMI, no pharyngeal exudate, mucous membranes moist Neuro: AAO x 3, speech clear and appropriate, strength intact bilaterally 5/5, sensation intact and equal all extremities and dermatomes, no pronator drift Chest: equal rise and fall of the chest,decreased air movement. Cardiac: Regular rate and rhythm, telemetry reviewed, skin warm dry, cap refill <3 seconds, peripheral pulses +2 no JVD, no murmur, no JVD, no edema GI: NABS x 4 quadrants, soft, nontender to palpation, no rebound, guarding or tenderness : Spontaneously voiding, no pain, no CVA tenderness, Extremities: Normal inspection, no peripheral edema or erythema, calfs nontender to palpation Psych: Normal mood and affect Skin: right foot blister- popped- tender to palpation plantar surface Results & Data Results & Data ([facility]) Vital Signs (Past 12 Hours) Vital Signs Temp Pulse Pulse Resp BP Pulse Ox 02/21/21 20:09 36.9 C 65 23 183/77 H 94 02/21/21 19:44 73 16 92 02/21/21 16:01 36.6 C 76 22 143/72 H 95 02/21/21 14:56 77 02/21/21 13:25 67 18 96 02/21/21 10:49 71 22 166/79 H 96 PG Care Time/CCT Total # of Minutes Spent Total Time Spent with Patient: Total time spent is greater than 50% in coordination of care (as documented) at patient's floor/unit and/or counseling patient: Coding Level of Care Code 42684 Subseq Hosp Care Lvl 2 Diagnoses Pneumonia J18.9 Hypoxia R09.02 Eosinophilic asthma J82.83 Disorder of lung with Sjogren's syndrome M35.02 Pulmonary fibrosis J84.10 HTN (hypertension) I10 Foot abrasion S90.819A Rheumatoid arteritis M05.20 Hypokalemia E87.6 Time Spent (min) 25
[2021-02-21] MEDS: ONDANSETRON 4 MG OD TAB PO PRN (23:09)
[2021-02-22] MEDS: ALBUTEROL 0.083% NEBU SOLN 3 ML VIAL NEB SCH ×4 (00:40→20:04)
[2021-02-22] MEDS: DOXYCYCLINE HYCLATE 100 MG in DEXTROSE 5% 100 ML IV SCH ×2 (01:08→13:35)
[2021-02-22] MEDS: LABETALOL HCL 100 MG TAB PO SCH ×2 (04:57→16:56)
[2021-02-22 07:35] LABS: Eosinophils # (auto) 0.01 K/uL (0-0.5); Eosinophils % (auto) 0.1 %; Hematocrit (blood only) 32.9 % (37-47); Hemoglobin 10.7 g/dL (12.0-16.0); Immature Granulocytes # (auto) 0.04 K/uL (0.00-0.02); Immature Granulocytes % (auto) 0.2 %; Lymphocytes # (auto) 1.12 K/uL (1.2-3.4); Lymphocytes % (auto) 6.9 %; Mean Corpuscular Hemoglobin 27.9 pg (25-34); Mean Corpuscular Hgb Conc 32.5 g/dL (32-36); Mean Corpuscular Volume 85.9 fL (80-100); Mean Platelet Volume 10.7 fL (7.4-10.4); Monocytes # (auto) 0.59 K/uL (0.11-0.59); Monocytes % (auto) 3.6 %; Neutrophils # (auto) 14.42 K/uL (1.4-6.5); Neutrophils % (auto) 89.2 %; Platelet Count 240 K/uL (130-400); RDW Coefficient of Variation 14.7 % (11.5-14.5); RDW Standard Deviation 45.9 fL (36.4-46.3); Red Blood Count 3.83 M/uL (4.2-5.4); White Blood Count 16.18 K/uL (4.8-10.8)
[2021-02-22 08:04] LABS: BUN Creatinine Ratio 31.7 (10-20); Calcium 9.1 mg/dl (8.5-10.1); Est GFR (Non-African American) 94.9 ml/min; Potassium 4.8 mmol/L (3.5-5.1)
[2021-02-22] MEDS: FLUTICASONE/VILANTEROL 200/25MCG 14 PUFFS/INHALER INH SCH (09:03)
[2021-02-22] MEDS: CHECK CLONIDINE PATCH PLACEMENT SCH ×2 (09:03→16:58)
[2021-02-22] MEDS: POTASSIUM CHLORIDE CRTAB 20 MEQ TABCR PO SCH ×2 (09:04→20:37)
[2021-02-22] MEDS: CETIRIZINE HCL 10 MG TABLET PO SCH (09:04)
[2021-02-22] MEDS: NAPROXEN 250 MG TAB PO SCH ×2 (09:05→20:34)
[2021-02-22] MEDS: PANTOprazole 40 MG TAB PO SCH (09:05)
[2021-02-22] MEDS: HYDROXYCHLOROQUINE SULFATE 200 MG TAB PO SCH ×2 (09:05→20:37)
[2021-02-22] MEDS: ONDANSETRON 4 MG OD TAB PO PRN (09:13)
[2021-02-22] MEDS: methylPREDNISolone 40 MG in SYRINGE 0 ML IV SCH ×2 (09:13→20:35)
--- NOTE | 2021-02-22 09:38 | XRay Report ---
XR chest 2V PA/lateral CLINICAL HISTORY: follow up infiltrates COMPARISON STUDY: Chest radiograph and chest CT February 20, 2021. FINDINGS: Lung volumes are normal. Extensive bilateral airspace opacities have progressed since chest CT and chest radiograph February 20, 2021.. There is no pneumothorax or pleural effusion. Cardiac si ze is normal. Mediastinal contours are normal. There is no evidence for pulmonary edema. IMPRESSION: Progression of bilateral airspace opacities suggestive of viral pneumonia. ACT 112: Negative or not required by law. Electronically signed by: Nikita Doyle M.D. 02/22/2021 9:37 AM
[2021-02-22] MEDS ORDERED: FUROSEMIDE 20 MG in SYRINGE 0 ML IV ONE (12:00)
--- NOTE | 2021-02-22 16:44 | Pulmonology Progress Note ---
Date of Service February 22, 2021 Assessment & Plan (1) Bilateral interstitial pneumonia: (2) Acute respiratory failure with hypoxia: (3) Rheumatoid arteritis: (4) Sjogren's disease: Plan: 55-year-old female with a past medical history of Sjogren's disorder, rheumatoid arthritis, asthma and tobacco abuse presenting to the ER due to hypoxemic respiratory failure. Groundglass opacities on CT chest: The differential for these findings is broad, but I favor an acute flare of interstitial lung disease. She reportedly has a history of Sjogren's disease. 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 I was able to review some of her results on her cellphone regarding her outpatient work-up. She gave me permission to look at her outpatient records from [facility]. Interestingly, there was a Sjogren's panel which was negative that included SSA and SSB antibodies. She also had complement levels which were within normal limits. Rheumatoid factor and CCP antibodies were negative as well. These were completed earlier this year. She did have an LAKEISHA screen which was positive. No titer was available for review. She relates that she sees a forensic toxicologist who is treating her for Sjogren's disease. She may have seronegative disease. Sjogren's is well known to cause airways disease and mimic asthma as well. Continue steroid therapy and antibiotics to cover for atypical infectious etiology. Urine Legionella antigen pending. Echocardiogram with evidence of grade 1 diastolic dysfunction and mild aortic valve sclerosis. 40 mg of IV Lasix given 02/22/2021. No evidence of pulmonary hypertension was seen. Outpatient PFTs will be beneficial to evaluate the degree of her underlying disease. Acute hypoxemia: Secondary to the above. Continue with 40 mg IV Solu-Medrol twice daily. Pneumonia difficult to rule out. Procalcitonin within normal limits. Atypical infection such as Legionella and Chlamydia psittacosis remains a possibility. Continue with doxycycline. No signs of viral pneumonia based on [facility] respiratory panel and COVID-19 testing. Pulmonary continue to follow along with you. Thank you for the consult. Admission and Anticipated Discharge Date Admission Date: February 20, 2021 Subjective Patient relates that she is fatigued today. She did not sleep much yesterday. She notes that going down for chest x-ray today tired her out. She continues to have shortness of breath. No fevers or chills overnight. She received 40 mg of IV Lasix and had significant urine output. Review of Systems Review of Systems: All systems reviewed & are unremarkable except as noted in HPI & below Physical Exam Physical Exam: Constitutional: She appears tired. 6 L oxygen mask in place Eyes: Pupils are equal round and reactive to light. Conjunctivae are normal. Anicteric sclera. Ears nose, mouth and throat: Mallampati class 2. Normal posterior oropharynx. Uvula is midline. Neck: Trachea is midline. Visual inspection is normal. Respiratory: Diminished lung sounds bilaterally. Mildly tachypneic. Crackles noted in bilateral lower lobes. Cardiovascular: Regular rate and rhythm. No murmurs. No edema. Clubbing present although difficult to fully evaluate as she has nail [place] on. Gastrointestinal: Normal bowel sounds, soft, nontender and nondistended. No hepatosplenomegaly noted. Musculoskeletal: No cyanosis. Patient is able to move all extremities. Strength is 5 out of 5 in the upper and lower extremities. Skin: No rashes, warm dry and intact. Neurologic: No obvious focal neurological deficits seen. Psychiatric: Alert and oriented x3 with a euthymic affect. Results & Data Results & Data ([facility]) Vital Signs (Past 12 Hours) Vital Signs Temp Pulse Pulse Resp BP BP Pulse Ox 02/22/21 15:47 97.9 F 71 24 161/93 H 92 02/22/21 13:06 68 18 96 02/22/21 12:00 97.5 F L 74 20 158/81 H 99 02/22/21 08:00 62 02/22/21 07:57 98.1 F 65 20 170/82 H 96 02/22/21 07:29 65 18 90 Chest x-ray with stable interstitial markings. PG Care Time/CCT Total # of Minutes Spent Total Time Spent with Patient: Total time spent is greater than 50% in coordina tion of care (as documented) at patient's floor/unit and/or counseling patient: Coding Level of Care Code 88898 Subseq Hosp Care Lvl 3 Diagnoses Bilateral interstitial pneumonia J84.9 Acute respiratory failure with hypoxia J96.01 Rheumatoid arteritis M05.20 Sjogren's disease M35.00
[2021-02-22] MEDS: SENNA 8.6 MG TAB PO SCH (16:56)
[2021-02-22] MEDS: ENOXAPARIN INJ 40 MG/0.4 ML SYR SQ SCH (16:56)
[2021-02-22] MEDS: MONTELUKAST SODIUM 10 MG TABLET PO SCH (20:36)
--- NOTE | 2021-02-22 21:12 | Hospitalist Progress Note ---
Date of Service February 22, 2021 Assessment & Plan (1) Pneumonia: Plan: Bilateral opacities, WBC 15, fever, sputum production, oxygen requirement - Viral vs. Bacterial vs. worsening of disease - Zosyn 4.5 gm IV q8 - Doxycyline 100mg IV q12 - Methylpred 80mg IV now - then BID - CRP 30.4, PCT 0.35 - BIOfire pending - CT of the chest - oxygen support to keep SPO2 >88% - Pulmonary consulted- appreciate assistance 02/22: Oxymask remains at 6 liters continue solumedrol IV Q12H. ordered lasix 40 mg IV x1 (2) Hypoxia: Plan: Acute hypoxic respiratory failure As above - Nebulizers q6 hour scheduled and q4 prn - improved since arrival - currently on Oxymax with SPO2 94%- with nebulizer SPo2 increased to 98% - Continue THONG, ICS/LABA, -NC/HFNC/CPAP/BiPAP/oxymask (3) Eosinophilic asthma: Plan: Diagnosed when she was younger as she reports - unsure of diagnostics- she also endorses that she never thinks she has had a bronchoscopy - Sputum EOS sent- however will start on steroids now anyway - Continue Cetrizine, and montelukast - nebulizers as above - CRP on admission is 30.4 - PCT 0.35 (4) Disorder of lung with Sjogren's syndrome: Plan: As above (5) Pulmonary fibrosis: Plan: Patient reports that she follows closely with her manager of digital and her case is mild- - she has significant disease on her mother's side of the family and endorses 4- 5 of her siblings has from this - appreciate pulmonary assistance - Xray faxed over from [employer] from January 02- reported as COPD with subplueral intersitial disease/fibroses stable without change (6) HTN (hypertension): Plan: Continue clonidine and labtelol - ECHO performed in January 15, 2021 - report faxed from [facility] - EF 60-65%, normal wall motion, tricial MR, mild with moderate AR, (7) Foot abrasion: Plan: With blister as originating injury - surrounding tissue not erythemic- but tender with palpation - follow clinically for now- await foot xray to evaluate for deeper infection and/or foreign body -consult wound care (8) Rheumatoid arteritis: Plan: With contractures in hands that gets "worsse when she is ill" - on hydroxychlorquine likely for both RA and Sjrogens- continue - Continue Naprosyn - Continue omeprazole while on NSAID and Steroid- if n/v continue will change to IV (9) Hypokalemia: Plan: Due to decreased oral intake - KCL 20meq BID for today - follow with BMP in the morning Admission and Anticipated Discharge Date Admission Date: February 20, 2021 Subjective 55 yo female reports no signifcant improvement today. Review of Systems Review of Systems: All systems reviewed & are unremarkable except as noted in HPI & below Physical Exam Physical Exam: General: awake, alert, no apparent distress Head: Normocephalic, atraumatic ENT: PERRL, EOMI, no pharyngeal exudate, mucous membranes moist Neuro: AAO x 3, speech clear and appropriate, strength intact bilaterally 5/5, sensation intact and equal all extremities and dermatomes, no pronator drift Chest: equal rise and fall of the chest,decreased air movement. Cardiac: Regular rate and rhythm, telemetry reviewed, skin warm dry, cap refill <3 seconds, peripheral pulses +2 no JVD, no murmur, no JVD, no edema GI: NABS x 4 quadrants, soft, nontender to palpation, no rebound, guarding or tenderness : Spontaneously voiding, no pain, no CVA tenderness, Extremities: Normal inspection, no peripheral edema or erythema, calfs nontender to palpation Psych: Normal mood and affect Skin: right foot blister- popped- tender to palpation plantar surface Results & Data Results & Data ([facility]) Vital Signs (Past 12 Hours) Vital Signs Temp Pulse Pulse Resp BP BP Pulse Ox 02/22/21 20:04 79 20 91 02/22/21 19:26 37.0 C 67 20 157/77 H 95 02/22/21 16:00 64 02/22/21 15:47 36.6 C 71 24 161/93 H 92 02/22/21 13:06 68 18 96 02/22/21 12:00 36.4 C L 74 20 158/81 H 99 PG Care Time/CCT Total # of Minutes Spent Total Time Spent with Patient: Total time spent is greater than 50% in coordination of care (as documented) at patient's floor/unit and/or counseling patient: Coding Level of Care Code 30760 Subseq Hosp Care Lvl 2 Diagnoses Pneumonia J18.9 Hypoxia R09.02 Eosinophilic asthma J82.83 Disorder of lung with Sjogren's syndrome M35.02 Pulmonary fibrosis J84.10 HTN (hypertension) I10 Foot abrasion S90.819A Rheumatoid arteritis M05.20 Hypokalemia E87.6 Time Spent (min) 25
[2021-02-23] MEDS: CHECK CLONIDINE PATCH PLACEMENT SCH ×3 (00:56→17:06)
[2021-02-23] MEDS: DOXYCYCLINE HYCLATE 100 MG in DEXTROSE 5% 100 ML IV SCH ×2 (01:07→13:26)
[2021-02-23] MEDS: ALBUTEROL 0.083% NEBU SOLN 3 ML VIAL NEB SCH ×4 (01:16→19:26)
[2021-02-23] MEDS: LABETALOL HCL 100 MG TAB PO SCH ×2 (04:18→17:07)
[2021-02-23 07:12] LABS: Eosinophils # (auto) 0.01 K/uL (0-0.5); Eosinophils % (auto) 0.1 %; Hematocrit (blood only) 35.1 % (37-47); Hemoglobin 11.4 g/dL (12.0-16.0); Immature Granulocytes # (auto) 0.03 K/uL (0.00-0.02); Immature Granulocytes % (auto) 0.2 %; Lymphocytes # (auto) 1.22 K/uL (1.2-3.4); Lymphocytes % (auto) 9.2 %; Mean Corpuscular Hemoglobin 28.4 pg (25-34); Mean Corpuscular Hgb Conc 32.5 g/dL (32-36); Mean Corpuscular Volume 87.3 fL (80-100); Mean Platelet Volume 11.1 fL (7.4-10.4); Neutrophils # (auto) 11.57 K/uL (1.4-6.5); Neutrophils % (auto) 87.5 %; Platelet Count 256 K/uL (130-400); RDW Coefficient of Variation 14.7 % (11.5-14.5); RDW Standard Deviation 47.3 fL (36.4-46.3); Red Blood Count 4.02 M/uL (4.2-5.4); White Blood Count 13.23 K/uL (4.8-10.8)
[2021-02-23] MEDS: FAMOTIDINE 20 MG TAB PO SCH (07:31)
[2021-02-23] MEDS: PANTOprazole 40 MG TAB PO SCH (07:31)
[2021-02-23 07:43] LABS: BUN Creatinine Ratio 32.9 (10-20); Calcium 9.6 mg/dl (8.5-10.1); Creatinine Clr Calc Pharmacy 73.3 ml/min; Est GFR (Non-African American) 81.1 ml/min; Magnesium 2.1 mg/dl (1.8-2.4); Potassium 4.6 mmol/L (3.5-5.1)
[2021-02-23] MEDS: SENNA 8.6 MG TAB PO SCH (09:09)
[2021-02-23] MEDS: NAPROXEN 250 MG TAB PO SCH (09:09)
[2021-02-23] MEDS: methylPREDNISolone 40 MG in SYRINGE 0 ML IV SCH ×3 (09:09→21:49)
[2021-02-23] MEDS: FLUTICASONE/VILANTEROL 200/25MCG 14 PUFFS/INHALER INH SCH (09:10)
[2021-02-23] MEDS: POTASSIUM CHLORIDE CRTAB 20 MEQ TABCR PO SCH ×2 (09:10→20:17)
[2021-02-23] MEDS: CETIRIZINE HCL 10 MG TABLET PO SCH (09:10)
[2021-02-23] MEDS: HYDROXYCHLOROQUINE SULFATE 200 MG TAB PO SCH ×2 (09:10→20:17)
--- NOTE | 2021-02-23 11:38 | Consultation Report ---
ORTHOPEDIC INPATIENT CONSULTATION DATE OF SERVICE: 02/23/2021 Special regards to right foot infection. HISTORY OF PRESENT ILLNESS: This is a 55-year-old female who was admitted to the hospital with hypox ia and pneumonia. She notes history of pain and swelling in the foot, which began after she attempte d to do a hike in sandals. She states that she subsequently had pain and swelling, and her wound did rupture and drained pus. She states she feels overall much improvement. I reviewed AP, lateral, ob lique of the right foot, it does not show any evidence of deep or bony infection. No evidence of ost eomyelitis in the region of concern. No gas in the soft tissues. PHYSICAL EXAMINATION: Right foot exam does show a superficial blister, which has been decompressed. She has no fluctuance, no erythema. She has no streaking erythema. She can flex and extend her dig its. She has mild superficial necrosis of the skin, but no evidence of deep or open wound. ASSESSMENT: Right foot infection, status post self-decompression. PLAN: At this point in time, she does not require any urgent surgical treatment and the wound overal l is improving and has drained on its own. Recommendation is for debridement and wound care through the wound care clinic. Orthopedics will sign off. If any further questions or concerns, feel free to contact us. Job ID: [id number]
[2021-02-23] MEDS ORDERED: methylPREDNISolone 40 MG in SYRINGE 0 ML IV STA (12:38)
[2021-02-23] MEDS ORDERED: LORazepam 0.5 MG TAB PO STA (12:38)
[2021-02-23] MEDS ORDERED: ALBUT/IPRATROP 3MG/0.5MG NEB 3 ML VIAL NEB PRN (12:41)
[2021-02-23] MEDS ORDERED: ALBUT/IPRATROP 3MG/0.5MG NEB 3 ML VIAL NEB STA (12:41)
--- NOTE | 2021-02-23 12:50 | Pulmonology Progress Note ---
Date of Service February 23, 2021 Assessment & Plan (1) Bilateral interstitial pneumonia: (2) Acute respiratory failure with hypoxia: (3) Rheumatoid arteritis: (4) Sjogren's disease: (5) Asthma exacerbation: (6) Insomnia: (7) HTN (hypertension): Plan: 55-year-old female with a past medical history of Sjogren's disorder, rheumatoid arthritis, asthma and tobacco abuse presenting to the ER due to hypoxemic respiratory failure. Groundglass opacities on CT chest: Likely acute flare of interstitial lung disease. Possible cellular NSIP given. History of Sjogren's disease and LAKEISHA positivity. Solu-Medrol increased to 40 mg 3 times a day 02/23/21. Outpatient PFTs will be beneficial to evaluate the degree of her underlying disease. Procalcitonin negative. Legionella antigen negative. [facility] respiratory panel was negative. COVID-19 testing negative. Anticipate bronchoscopy Thursday. Pneumocystis jirovecii pneumonia seems less likely as she is only on hydroxychloroquine for Sjogren's. Follows with outpatient rheumatology in [facility] and outpatient pulmonology. Acute asthma exacerbation: Sjogren's disease can mimic asthma. DuoNebs every 4 hours as needed. She will give her nebulizer treatment now. Incruse Ellipta added 02/23 to her Breo regimen. Acute anxiety is playing a significant role in her symptoms currently. One-time dose of p.o. 0.5 mg of Ativan. Incentive spirometry and flutter valve encouraged. Insomnia: Encourage proper sleep hygiene. We will give a dose of 3 mg melatonin nightly. Hypertension: Echocardiogram with evidence of grade 1 diastolic dysfunction and mild aortic valve sclerosis. No evidence of pulmonary hypertension was seen. We will give an additional dose of 20 mg IV Lasix 02/23. Her blood pressures poorly controlled at present. This can be causing flash pulmonary edema. Pulmonary continue to follow along with you. Admission and Anticipated Discharge Date Admission Date: February 20, 2021 Subjective Patient seen and examined this afternoon. She is very anxious and at times tearful. She notes tightness in her chest. She is trying to sit upright today to help with her lung capacity. She did not sleep much last night. She remains constipated and has not had a bowel movement since Thursday of last week. She denies any fevers or chills. Her appetite is poor. Review of Systems Review of Systems: All systems reviewed & are unremarkable except as noted in HPI & below Physical Exam Physical Exam: Constitutional: She appears tired. 6 L oxygen mask in place. Anxious appearing. Eyes: Pupils are equal round and reactive to light. Conjunctivae are normal. Anicteric sclera. Ears nose, mouth and throat: Mallampati class 2. Normal posterior oropharynx. Uvula is midline. Neck: Trachea is midline. Visual inspection is normal. Respiratory: Diminished lung sounds bilaterally. Mildly tachypneic. Crackles noted in bilateral lower lobes. Cardiovascular: Regular rate and rhythm. No murmurs. No edema. Clubbing present although difficult to fully evaluate as she has nail faroese on. Gastrointestinal: Normal bowel sounds, soft, nontender and nondistended. No hepatosplenomegaly noted. Musculoskeletal: No cyanosis. Patient is able to move all extremities. Strength is 5 out of 5 in the upper and lower extremities. Skin: No rashes, warm dry and intact. Neurologic: No obvious focal neurological deficits seen. Psychiatric: Alert and oriented x3 with a euthymic affect. Results & Data Results & Data ([facility]) Vital Signs (Past 12 Hours) Vital Signs Temp Pulse Pulse Resp BP BP Pulse Ox 02/23/21 10:48 97.7 F 66 22 168/89 H 94 02/23/21 07:56 62 02/23/21 07:40 97.9 F 64 23 165/75 H 95 02/23/21 07:17 57 L 16 96 02/23/21 04:16 98.6 F 76 22 191/88 H 96 02/23/21 01:16 80 20 91 Vital signs, labs and imaging reviewed PG Care Time/CCT Total # of Minutes Spent Total Time Spent with Patient: Total time spent is greater than 50% in coordination of care (as documented) at patient's floor/unit and/or counseling patient: Coding Level of Care Code 32950 Subseq Hosp Care Lvl 3 Diagnoses Bilateral interstitial pneumonia J84.9 Acute respiratory failure with hypoxia J96.01 Rheumatoid arteritis M05.20 Sjogren's disease M35.00 Asthma exacerbation J45.901 Insomnia G47.00 HTN (hypertension) I10
[2021-02-23] MEDS ORDERED: FUROSEMIDE 20 MG in SYRINGE 0 ML IV ONE (13:30)
[2021-02-23] MEDS: UMECLIDINIUM BROMIDE 62.5MCG/BLISTER 7 PUFFS/INHALER INH SCH (13:45)
[2021-02-23] MEDS: ENOXAPARIN INJ 40 MG/0.4 ML SYR SQ SCH (17:07)
[2021-02-23] MEDS: MONTELUKAST SODIUM 10 MG TABLET PO SCH (20:17)
--- NOTE | 2021-02-23 21:01 | Hospitalist Progress Note ---
Date of Service February 23, 2021 Assessment & Plan (1) Pneumonia: Plan: Bilateral opacities, WBC 15, fever, sputum production, oxygen requirement - Viral vs. Bacterial vs. worsening of disease - Zosyn 4.5 gm IV q8 - Doxycyline 100mg IV q12 - Methylpred 80mg IV now - then BID - CRP 30.4, PCT 0.35 - BIOfire pending - CT of the chest - oxygen support to keep SPO2 >88% - Pulmonary consulted- appreciate assistance 02/22: Oxymask remains at 6 liters continue solumedrol IV Q12H. ordered lasix 40 mg IV x1 02/23 Incruse Ellipta added 02/23 to her Breo regimen. Anticipate bronchoscopy on Thursday. (2) Hypoxia: Plan: Acute hypoxic respiratory failure As above - Nebulizers q6 hour scheduled and q4 prn - improved since arrival - currently on Oxymax with SPO2 94%- with nebulizer SPo2 increased to 98% - Continue THONG, ICS/LABA, -NC/HFNC/CPAP/BiPAP/oxymask (3) Eosinophilic asthma: Plan: Diagnosed when she was younger as she reports - unsure of diagnostics- she also endorses that she never thinks she has had a bronchoscopy - Sputum EOS sent- however will start on steroids now anyway - Continue Cetrizine, and montelukast - nebulizers as above - CRP on admission is 30.4 - PCT 0.35 (4) Disorder of lung with Sjogren's syndrome: Plan: As above (5) Pulmonary fibrosis: Plan: Patient reports that she follows closely with her chief human resources officer and her case is mild- - she has significant disease on her mother's side of the family and endorses 4- 5 of her siblings has from this - appreciate pulmonary assistance - Xray faxed over from [employer] from January 02- reported as COPD with subplueral intersitial disease/fibroses stable without change (6) HTN (hypertension): Plan: Continue clonidine and labtelol - ECHO performed in January 15, 2021 - [facility] - EF 60-65%, normal wall motion, tricial MR, mild with moderate AR, (7) Foot abrasion: Plan: With blister as originating injury - surrounding tissue not erythemic- but tender with palpation - follow clinically for now- await foot xray to evaluate for deeper infection and/or foreign body -consult wound care (8) Rheumatoid arteritis: Plan: With contractures in hands that gets "worsse when she is ill" - on hydroxychlorquine likely for both RA and Sjrogens- continue - Continue Naprosyn - Continue omeprazole while on NSAID and Steroid- if n/v continue will change to IV (9) Hypokalemia: Plan: Due to decreased oral intake - KCL 20meq BID for today - follow with BMP in the morning Admission and Anticipated Discharge Date Admission Date: February 20, 2021 Subjective Patient reports no signifcant improvement from yesterday Review of Systems Review of Systems: All systems reviewed & are unremarkable except as noted in HPI & below Physical Exam Physical Exam: General: awake, alert, no apparent distress Head: Normocephalic, atraumatic ENT: PERRL, EOMI, no pharyngeal exudate, mucous membranes moist Neuro: AAO x 3, speech clear and appropriate, strength intact bilaterally 5/5, sensation intact and equal all extremities and dermatomes, no pronator drift Chest: equal rise and fall of the chest,decreased air movement. Cardiac: Regular rate and rhythm, telemetry reviewed, skin warm dry, cap refill <3 seconds, peripheral pulses +2 no JVD, no murmur, no JVD, no edema GI: NABS x 4 quadrants, soft, nontender to palpation, no rebound, guarding or tenderness : Spontaneously voiding, no pain, no CVA tenderness, Extremities: Normal inspection, no peripheral edema or erythema, calfs nontender to palpation Psych: Normal mood and affect Skin: right foot blister- popped- tender to palpation plantar surface Results & Data Results & Data ([facility]) Vital Signs (Past 12 Hours) Vital Signs Temp Pulse Pulse Resp BP BP Pulse Ox 02/23/21 19:48 36.7 C 79 21 154/79 H 94 02/23/21 19:26 66 22 95 02/23/21 16:10 36.6 C 80 22 153/80 H 91 02/23/21 15:00 73 02/23/21 13:30 76 20 95 02/23/21 10:48 36.5 C 66 22 168/89 H 94 PG Care Time/CCT Total # of Minutes Spent Total Time Spent with Patient: Total time spent is greater than 50% in coordination of care (as documented) at patient's floor/unit and/or counseling patient: Coding Level of Care Code 39768 Subseq Hosp Care Lvl 2 Diagnoses Pneumonia J18.9 Hypoxia R09.02 Eosinophilic asthma J82.83 Disorder of lung with Sjogren's syndrome M35.02 Pulmonary fibrosis J84.10 HTN (hypertension) I10 Foot abrasion S90.819A Rheumatoid arteritis M05.20 Hypokalemia E87.6 Time Spent (min) 25
[2021-02-23] MEDS: MELATONIN 3 MG TAB PO PRN (21:53)
[2021-02-24] MEDS: ALBUTEROL 0.083% NEBU SOLN 3 ML VIAL NEB SCH ×4 (00:33→20:41)
[2021-02-24] MEDS: DOXYCYCLINE HYCLATE 100 MG in DEXTROSE 5% 100 ML IV SCH ×2 (00:59→13:00)
[2021-02-24] MEDS: CHECK CLONIDINE PATCH PLACEMENT SCH ×3 (01:00→15:05)
[2021-02-24] MEDS: LABETALOL HCL 100 MG TAB PO SCH ×2 (04:52→16:55)
[2021-02-24 07:23] LABS: Hematocrit (blood only) 35.2 % (37-47); Hemoglobin 11.5 g/dL (12.0-16.0); Mean Corpuscular Hemoglobin 27.9 pg (25-34); Mean Corpuscular Hgb Conc 32.7 g/dL (32-36); Mean Corpuscular Volume 85.4 fL (80-100); Mean Platelet Volume 10.8 fL (7.4-10.4); Platelet Count 256 K/uL (130-400); RDW Coefficient of Variation 14.7 % (11.5-14.5); RDW Standard Deviation 45.8 fL (36.4-46.3); Red Blood Count 4.12 M/uL (4.2-5.4); White Blood Count 11.99 K/uL (4.8-10.8)
[2021-02-24 07:49] LABS: BUN Creatinine Ratio 42.4 (10-20); Calcium 9.1 mg/dl (8.5-10.1); Creatinine Clr Calc Pharmacy 83.5 ml/min; Est GFR (Non-African American) 94.9 ml/min; Potassium 4.9 mmol/L (3.5-5.1)
[2021-02-24] MEDS: methylPREDNISolone 40 MG in SYRINGE 0 ML IV SCH ×3 (08:22→22:11)
[2021-02-24] MEDS: HYDROXYCHLOROQUINE SULFATE 200 MG TAB PO SCH ×2 (08:22→21:42)
[2021-02-24] MEDS: SENNA 8.6 MG TAB PO SCH (08:22)
[2021-02-24] MEDS: FLUTICASONE/VILANTEROL 200/25MCG 14 PUFFS/INHALER INH SCH (08:23)
[2021-02-24] MEDS: PANTOprazole 40 MG TAB PO SCH (08:23)
[2021-02-24] MEDS: UMECLIDINIUM BROMIDE 62.5MCG/BLISTER 7 PUFFS/INHALER INH SCH (08:23)
[2021-02-24] MEDS: FAMOTIDINE 20 MG TAB PO SCH (08:23)
[2021-02-24] MEDS: CETIRIZINE HCL 10 MG TABLET PO SCH (08:23)
[2021-02-24] MEDS: POTASSIUM CHLORIDE CRTAB 20 MEQ TABCR PO SCH ×2 (08:51→21:42)
--- NOTE | 2021-02-24 15:30 | Pulmonology Progress Note ---
Date of Service February 24, 2021 Assessment & Plan (1) Bilateral interstitial pneumonia: (2) Acute respiratory failure with hypoxia: (3) Rheumatoid arteritis: (4) Sjogren's disease: (5) Asthma exacerbation: (6) Insomnia: (7) HTN (hypertension): Plan: 55-year-old female with a past medical history of Sjogren's disorder, rheumatoid arthritis, asthma and tobacco abuse presenting to the ER due to hypoxemic respiratory failure. Groundglass opacities on CT chest: Likely acute flare of interstitial lung disease. Possible cellular NSIP given. History of Sjogren's disease and LAKEISHA positivity. Solu-Medrol increased to 40 mg 3 times a day 02/23/21. Outpatient PFTs will be beneficial to evaluate the degree of her underlying disease. Procalcitonin negative. Legionella antigen negative. [facility] respiratory panel was negative. COVID-19 testing negative. Anticipate bronchoscopy Thursday. Pneumocystis jirovecii pneumonia seems less likely as she is only on hydroxychloroquine for Sjogren's. Follows with outpatient rheumatology in [facility] and outpatient pulmonology. Follow-up chest x-ray tomorrow. We will plan for bronchoscopy with BAL and brushing tomorrow. This was discussed with respiratory therapist. I would like to rule out infectious etiology such as PCP. I spoke with the patient's fianc over the phone and updated her on the patient's condition. Patient consents to bronchoscopy. Will obtain formal written consent tomorrow. Acute asthma exacerbation: Sjogren's disease can mimic asthma. DuoNebs every 4 hours as needed. She will give her nebulizer treatment now. Incruse Ellipta added 02/23 to her Breo regimen. Anxiety playing a role. Incentive spirometry and flutter valve encouraged. Insomnia: Encourage proper sleep hygiene. Continue melatonin. Hypertension: Echocardiogram with evidence of grade 1 diastolic dysfunction and mild aortic valve sclerosis. No evidence of pulmonary hypertension was seen. Remains hypertensive. We will hold on further diuresis as her BUN is starting to climb. Pulmonary continue to follow along with you. Admission and Anticipated Discharge Date Admission Date: February 20, 2021 Subjective Patient seen and examined this afternoon. She feels less fatigued. She slept well yesterday after receiving Ativan and melatonin. She continues to require 5 L of oxygen which is an improvement from yesterday when she was on 6 L. No chest pain. She still has some mild shortness of breath especially with exertion. Review of Systems Review of Systems: All systems reviewed & are unremarkable except as noted in HPI & below Physical Exam Physical Exam: Constitutional: She appears tired. 5 [address] oxygen mask in place. Anxious appearing. Eyes: Pupils are equal round and reactive to light. Conjunctivae are normal. Anicteric sclera. Ears nose, mouth and throat: Mallampati class 2. Normal posterior oropharynx. Uvula is midline. Neck: Trachea is midline. Visual inspection is normal. Respiratory: Diminished lung sounds bilaterally. Mildly tachypneic. Crackles noted in bilateral lower lobes. Cardiovascular: Regular rate and rhythm. No murmurs. No edema. Clubbing present although difficult to fully evaluate as she has nail divehi on. Gastrointestinal: Normal bowel sounds, soft, nontender and nondistended. No hepatosplenomegaly noted. Musculoskeletal: No cyanosis. Patient is able to move all extremities. Strength is 5 out of 5 in the upper and lower extremities. Skin: No rashes, warm dry and intact. Neurologic: No obvious focal neurological deficits seen. Psychiatric: Alert and oriented x3 with a euthymic affect. Results & Data Results & Data ([facility]) Vital Signs (Past 12 Hours) Vital Signs Temp Pulse Pulse Resp BP BP Pulse Ox 02/24/21 13:03 79 20 92 02/24/21 11:57 98.6 F 95 H 20 174/83 H 95 02/24/21 09:00 82 02/24/21 07:31 67 20 94 02/24/21 07:11 97.9 F 67 17 186/81 H 90 02/24/21 04:43 97.9 F 76 18 153/80 H 93 02/24/21 04:29 87 24 92 vital signs, labs and imaging reviewed PG Care Time/CCT Total # of Minutes Spent Total Time Spent with Patient: Total time spent is greater than 50% in coordination of care (as documented) at patient's floor/unit and/or counseling patient: Coding Level of Care Code 54800 Subseq Hosp Care Lvl 3 Diagnoses Bilateral interstitial pneumonia J84.9 Acute respiratory failure with hypoxia J96.01 Rheumatoid arteritis M05.20 Sjogren's disease M35.00 Asthma exacerbation J45.901 Insomnia G47.00 HTN (hypertension) I10
[2021-02-24] MEDS: ENOXAPARIN INJ 40 MG/0.4 ML SYR SQ SCH (17:27)
--- NOTE | 2021-02-24 19:39 | Hospitalist Progress Note ---
Date of Service February 24, 2021 Assessment & Plan (1) Pneumonia: Plan: Bilateral opacities, WBC 15, fever, sputum production, oxygen requirement - Viral vs. Bacterial vs. worsening of disease - Zosyn 4.5 gm IV q8 - Doxycyline 100mg IV q12 - Methylpred 80mg IV now - then BID - CRP 30.4, PCT 0.35 - BIOfire pending - CT of the chest - oxygen support to keep SPO2 >88% - Pulmonary consulted- appreciate assistance 02/22: Oxymask remains at 6 liters continue solumedrol IV Q12H. ordered lasix 40 mg IV x1 02/24 No significant improvement -continue flutter valve and incentive spirometry. Incruse Ellipta added 02/23 to her Breo regimen. Anticipate bronchoscopy on Thursday. (2) Hypoxia: Plan: Acute hypoxic respiratory failure As above - Nebulizers q6 hour scheduled and q4 prn - improved since arrival - currently on Oxymax with SPO2 94%- with nebulizer SPo2 increased to 98% - Continue THONG, ICS/LABA, -NC/HFNC/CPAP/BiPAP/oxymask (3) Eosinophilic asthma: Plan: Diagnosed when she was younger as she reports - unsure of diagnostics- she also endorses that she never thinks she has had a bronchoscopy - Sputum EOS sent- however will start on steroids now anyway - Continue Cetrizine, and montelukast - nebulizers as above - CRP on admission is 30.4 - PCT 0.35 (4) Disorder of lung with Sjogren's syndrome: Plan: As above (5) Pulmonary fibrosis: Plan: Patient reports that she follows closely with her senior energy market coordinator and her case is mild- - she has significant disease on her mother's side of the family and endorses 4- 5 of her siblings has from this - appreciate pulmonary assistance - Xray faxed over from [facility] from January 02- reported as COPD with subplueral intersitial disease/fibroses stable without change (6) HTN (hypertension): Plan: Continue clonidine and labtelol - ECHO performed in January 15, 2021 - report faxed from [email or web address] - EF 60-65%, normal wall motion, tricial MR, mild with moderate AR, (7) Foot abrasion: Plan: With blister as originating injury - surrounding tissue not erythemic- but tender with palpation - follow clinically for now- await foot xray to evaluate for deeper infection and/or foreign body -consult wound care (8) Rheumatoid arteritis: Plan: With contractures in hands that gets "worsse when she is ill" - on hydroxychlorquine likely for both RA and Sjrogens- continue - Continue Naprosyn - Continue omeprazole while on NSAID and Steroid- if n/v continue will change to IV (9) Hypokalemia: Plan: Due to decreased oral intake improved. - follow with BMP in the morning Admission and Anticipated Discharge Date Admission Date: February 20, 2021 Subjective Patient reports no new symptoms. Review of Systems Review of Systems: All systems reviewed & are unremarkable except as noted in HPI & below Physical Exam Physical Exam: General: awake, alert, no apparent distress Head: Normocephalic, atraumatic ENT: PERRL, EOMI, no pharyngeal exudate, mucous membranes moist Neuro: AAO x 3, speech clear and appropriate, strength intact bilaterally 5/5, sensation intact and equal all extremities and dermatomes, no pronator drift Chest: equal rise and fall of the chest,decreased air movement. Cardiac: Regular rate and rhythm, telemetry reviewed, skin warm dry, cap refill <3 seconds, peripheral pulses +2 no JVD, no murmur, no JVD, no edema GI: NABS x 4 quadrants, soft, nontender to palpation, no rebound, guarding or tenderness : Spontaneously voiding, no pain, no CVA tenderness, Extremities: Normal inspection, no peripheral edema or erythema, calfs nontender to palpation Psych: Normal mood and affect Skin: decompressed superficial blister on plantar surface of right foot Results & Data Results & Data ([facility]) Vital Signs (Past 12 Hours) Vital Signs Temp Pulse Pulse Resp BP Pulse Ox 02/24/21 16:00 36.8 C 92 H 18 159/66 H 98 02/24/21 13:03 79 20 92 02/24/21 11:57 37 C 95 H 20 174/83 H 95 02/24/21 09:00 82 PG Care Time/CCT Total # of Minutes Spent Total Time Spent with Patient: Total time spent is greater than 50% in coordination of care (as documented) at patient's floor/unit and/or counseling patient: Coding Level of Care Code 51659 Subseq Hosp Care Lvl 2 Diagnoses Pneumonia J18.9 Hypoxia R09.02 Eosinophilic asthma J82.83 Disorder of lung with Sjogren's syndrome M35.02 Pulmonary fibrosis J84.10 HTN (hypertension) I10 Foot abrasion S90.819A Rheumatoid arteritis M05.20 Hypokalemia E87.6
[2021-02-24] MEDS: MONTELUKAST SODIUM 10 MG TABLET PO SCH (21:42)
[2021-02-25] MEDS: ALBUTEROL 0.083% NEBU SOLN 3 ML VIAL NEB SCH ×4 (00:20→19:52)
[2021-02-25] MEDS: CHECK CLONIDINE PATCH PLACEMENT SCH ×3 (00:36→16:40)
[2021-02-25] MEDS: DOXYCYCLINE HYCLATE 100 MG in DEXTROSE 5% 100 ML IV SCH ×2 (02:03→14:17)
[2021-02-25] MEDS: ONDANSETRON 4 MG OD TAB PO PRN (03:57)
[2021-02-25] MEDS: LABETALOL HCL 100 MG TAB PO SCH ×2 (04:02→16:42)
[2021-02-25 07:14] LABS: Hematocrit (blood only) 37.6 % (37-47); Hemoglobin 12.4 g/dL (12.0-16.0); Mean Corpuscular Hemoglobin 28.1 pg (25-34); Mean Corpuscular Volume 85.1 fL (80-100); Mean Platelet Volume 10.9 fL (7.4-10.4); Platelet Count 284 K/uL (130-400); RDW Coefficient of Variation 14.6 % (11.5-14.5); Red Blood Count 4.42 M/uL (4.2-5.4); White Blood Count 16.43 K/uL (4.8-10.8)
[2021-02-25 07:45] LABS: BUN Creatinine Ratio 36.2 (10-20); Calcium 9.3 mg/dl (8.5-10.1); Creatinine Clr Calc Pharmacy 76.7 ml/min; Est GFR (African American) 101.5 ml/min; Est GFR (Non-African American) 87.5 ml/min; Potassium 4.9 mmol/L (3.5-5.1)
[2021-02-25] MEDS: methylPREDNISolone 40 MG in SYRINGE 0 ML IV SCH ×3 (08:55→22:58)
[2021-02-25] MEDS: FLUTICASONE/VILANTEROL 200/25MCG 14 PUFFS/INHALER INH SCH (08:56)
[2021-02-25] MEDS: UMECLIDINIUM BROMIDE 62.5MCG/BLISTER 7 PUFFS/INHALER INH SCH (08:56)
--- NOTE | 2021-02-25 09:49 | XRay Report ---
XR chest 1V portable HISTORY: Shortness of breath. follow up infilitrates COMPARISON: Chest 02/22/2021. FINDINGS: No pneumothorax. No pleural effusions. The heart remains normal in size. There are low lung volumes. Interstitial thickening and patchy hazy bilateral airspace opacities appear to have slightl y improved in the interval. IMPRESSION: Slight improvement in the bilateral airspace opacities. ACT 112: Negative or not required by law. Electronically signed by: Bruce Avery M.D. 02/25/2021 9:48 AM
[2021-02-25] MEDS ORDERED: MIDAZOLAM HCL 5 MG/ML 1 ML VIAL ONE ×2 (10:00→10:20)
[2021-02-25] MEDS ORDERED: fentaNYL citrate 100 MCG/2 ML VIAL ONE ×2 (10:00→10:20)
--- NOTE | 2021-02-25 10:22 | History & Physical Bridge Note ---
Date of Service February 25, 2021 History & Physical Bridge Note I have examined the patient, reviewed the History & Physical and in the interval since the performance of the History & Physical I have noted the following changes of clinical significance: no changes noted
--- NOTE | 2021-02-25 10:23 | Pre Anesthesia Assessment ---
Date of Service February 25, 2021 Pre Sedation Assessment Vital Signs Temp Pulse Pulse Resp BP Pulse Ox 02/25/21 08:00 64 02/25/21 07:22 88 20 94 02/25/21 04:45 88 26 H 97 02/25/21 03:46 97.7 F 68 19 151/86 H 91 02/25/21 00:20 66 18 97 02/24/21 23:16 98.2 F 76 18 163/78 H 94 02/24/21 19:59 98.4 F 90 20 172/90 H 90 02/24/21 16:00 98.2 F 92 H 18 159/66 H 98 02/24/21 13:03 79 20 92 02/24/21 11:57 98.6 F 95 H 20 174/83 H 95 Pre-Sedation Airway Assessment Smoking Status: Former smoker Hx Sleep Apnea: No Short, Thick Neck: No Thyromental Distance: > or= 3.5 Finger Breadths Oral Cavity: + WNL Mallampati Class: II ASA: ASA2 NPO Status Date of Last Intake of Fluids: 02/24/21 Time of Last Intake of Fluids: 18:00 Date of Last Intake of Solid Food: 02/24/21 Time of Last Intake of Solid Foods: 18:00 Notes The planned sedation has been discussed with the patient. Informed Consent was obtained. I have identified the patient, determined the appropriateness of sedation and have assessed the patient immediately prior to the procedure. All medicine(s) and interventions are by my order.
--- NOTE | 2021-02-25 11:08 | Post Anesthesia Assessment ---
Date of Service February 25, 2021 Post Sedation Assessment Vital Signs Temp Pulse Pulse Resp BP Pulse Ox 02/25/21 11:00 98.1 F 64 18 160/69 H 95 02/25/21 10:55 79 16 150/73 H 97 02/25/21 10:50 76 16 177/85 H 97 02/25/21 10:45 65 16 162/75 H 97 02/25/21 10:40 65 18 187/90 H 97 02/25/21 10:35 73 18 163/76 H 97 02/25/21 10:30 68 18 168/64 H 100 02/25/21 10:25 68 18 177/85 H 100 02/25/21 08:00 64 02/25/21 07:22 88 20 94 02/25/21 04:45 88 26 H 97 02/25/21 03:46 97.7 F 68 19 151/86 H 91 02/25/21 00:20 66 18 97 02/24/21 23:16 98.2 F 76 18 163/78 H 94 02/24/21 19:59 98.4 F 90 20 172/90 H 90 02/24/21 16:00 98.2 F 92 H 18 159/66 H 98 02/24/21 13:03 79 20 92 02/24/21 11:57 98.6 F 95 H 20 174/83 H 95 Recovery Score Activity: Moves 4 extremities Respiration: Deep Breath/Cough Circulation: +/-20% PreAnes Value Consciousness: Arouseable (by name) Oxygen Saturation: O2 needed for >90% Post Anesthesia Score: 8 Discharge Sedation Level of Care: Fast Track Phase II Post Sedation Plan On clinical assessment, the patient appears to have tolerated the sedation without complications. Patient is recovering as anticipated. Patient will continue to be monitored by nursing and may be discharged when sedation discharge criteria are met per below protocol. Upon Completions of procedure up to 15 minutes continue every 5 minute vital signs and the P.A.R. score; then discharge to a Phase I or Fast Track to Phase II per the following guidelines: * Discharge Patient to appropriate Phase II area if PAR is 8 or greater or return to pre- procedure baseline. The post - procedure orders will be as directed. * If PAR score is less than 8 or not return to pre-procedure baseline then patient will follow Phase I monitoring till PAR is reached for Phase II. The Phase I may be done in procedure room or may call to secure a Phase I area. * If naloxone or flumazenil are used for reversal, hold in Phase I for continued monitoring from when last reversal dose was given for a minimum of 60 minutes or longer pending the nurse and/or physician discretion of patient condition before discharge to Phase II. Please call the Sedation Physician to re-evaluate and complete post-note for discharge to Phase II area. Do NOT discharge from procedure sedation or Phase 1 until post- sedation evaluation note is complete by procedure /sedation MD Sedation Discharge Instructions to be given to the patient at discharge to home.
--- NOTE | 2021-02-25 11:30 | Procedure Note ---
Procedure Note Date of Service February 25, 2021 Note PREOPERATIVE DIAGNOSIS: Interstitial lung disease exacerbation POSTOPERATIVE DIAGNOSIS: Interstitial lung disease exacerbation PROCEDURE PERFORMED: Flexible fiberoptic bronchoscopy with bronchoalveolar lavage and brushings COMPLICATIONS: None. INDICATION: Rule out infectious etiology and other etiology PROCEDURE: After obtaining an informed consent, the patient was brought to the Bronchoscopy Suite. The patient had appropriate oxygen, blood pressure, heart rate, and respiratory rate monitoring applied and monitored continuously throughout the procedure. Supplemental oxygen via nasal cannula as per nursing records was applied to the nasopharynx with adequate saturations achieved. Topical anesthesia with nebulized 1% lidocaine was achieved. Subsequent to this, the patient was premedicated with 3 mg of midazolam and 100 mcg of fentanyl. Bronchoscope was inserted via the mouth. There was a bite block in place. There was normal vocal cord motion without masses or lesions. Additional topical anesthesia with 1% lidocaine was applied to the trachea and kerrie. Trachea and kerrie appeared normal. Kerrie was sharp. There was some posterior collapse of the trachea upon coughing. The bilateral tracheobronchial tree was inspected up to the subsegmental region. No obvious lesions or masses noted. There were thick secretions that were white noted bilaterally. I wedged the bronchoscope in the right middle lobe and we performed a bronchial alveolar lavage with 120 mL of saline. Approximately 40 mL of saline was aspirated back. I then wedged in the lingula. We perform microscopy brushings from the lingula. Bleeding and oozing was noted from the lingula. Cold saline was utilized with hemostasis achieved. We then performed brushings of the left lower lobe for cytology. No significant bleeding was seen. The scope was then removed. The patient tolerated the procedure well. Postprocedure chest x-ray pending. Recommendations: Silver stain ordered for the BAL fluid to evaluate for fungal elements. Please follow cultures from the BAL microscopy brushings. Please follow cytology brushing results. Cytology from BAL fluid sent as well. Coding CPT Codes Pulmonary/Thoracic - Pulmonary and Thoracic: 87587 Dx bronchoscopy/BAL ([id number]) Pulmonary/Thoracic - Pulmonary and Thoracic: 53838 Dx bronchoscopy/brush ([id number]) [facility] Procedure Codes (Charges) Pulmonary/Thoracic Procedure 1: Pulmonary and Thoracic: 64916 Dx bronchoscopy/BAL Procedure 2: Pulmonary and Thoracic: 69482 Dx bronchoscopy/brush
--- NOTE | 2021-02-25 11:37 | XRay Report ---
XR chest 1V portable HISTORY: post bronch COMPARISON: Chest 02/25/2021. FINDINGS: Multifocal groundglass airspace opacities and interstitial thickening are again noted. This has slightly progressed in the interval. No pleural effusions. No pneumothorax. The heart is normal in size. IMPRESSION: Slight progression of the multifocal groundglass airspace opacities. No pneumothorax. ACT 112: Negative or not required by law. Electronically signed by: Bruce Avery M.D. 02/25/2021 11:35 AM
[2021-02-25 13:44] LABS: Eosinophil Body Fluid Man 1 %; Fluid Mono/Macrophage 55 %; Lymphocyte Body Fluid Man 7 %; Neutrophil Body Fluid Man 37 %
[2021-02-25] MEDS: CETIRIZINE HCL 10 MG TABLET PO SCH (14:18)
[2021-02-25] MEDS: FAMOTIDINE 20 MG TAB PO SCH (14:18)
[2021-02-25] MEDS: PANTOprazole 40 MG TAB PO SCH (14:18)
[2021-02-25] MEDS: HYDROXYCHLOROQUINE SULFATE 200 MG TAB PO SCH ×2 (14:19→22:58)
[2021-02-25] MEDS: SENNA 8.6 MG TAB PO SCH (14:19)
[2021-02-25] MEDS ORDERED: FUROSEMIDE 20 MG in SYRINGE 0 ML IV ONE (15:45)
[2021-02-25] MEDS: ENOXAPARIN INJ 40 MG/0.4 ML SYR SQ SCH (16:42)
--- NOTE | 2021-02-25 18:58 | Hospitalist Progress Note ---
Date of Service February 25, 2021 Assessment & Plan (1) Hypoxia: Plan: Flaquita is a 55-year-old female with a past medical history of Sjogren's, asthma, rheumatoid arteritis, hypertension, pulmonary fibrosis, eosinophilic asthma, and interstitial pneumonia who presented to [facility] [address] with tachypnea and shortness of breath with cough. Acute hypoxic respiratory failure 2/2 ILD versus pneumonia Pulmonology consulted, appreciate recommendations Patient status post bronchoscopy this morning Procalcitonin negative, Legionella negative, bio fire negative, COVID-19 negative Continue to methylprednisolone 40 mg 3 times daily, albuterol nebulizer as needed, Incruse Ellipta, continue Breo SPO2 goal greater than 90% Infectious evaluation as noted below Status post 20 mg Lasix 02/25 afternoon, follow diuresis -Patient feeling much better following bronc, attempting to down titrate oxygen, patient feels less short of breath and breathing improved with bronc and Lasix. Continue to follow clinically (2) Pneumonia: Plan: CXR with progression of bilateral opacities, leukocytosis 15 uptrending to 16 today, patient with increased white sputum production - Viral vs. Bacterial vs. worsening of disease -Zosyn/doxy previously narrowed to doxycyline 100mg IV q12 -Steroids as above for underlying? ILD - CRP 30.4, PCT 0.35, trend CRP - BIOfire pending - CT-C: Patchy areas of groundglass attenuation and septal thickening throughout bilateral lungs might represent multifocal atypical pneumonia/Covid. Short-term follow-up with CT of the chest without IV contrast on nonemergency basis in 4-6 weeks is suggested document resolution. 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 and her case is mild- - she has significant disease on her mother's side of the family and endorses 4- 5 of her siblings has from this - appreciate pulmonary assistance - Xray faxed over from [facility] [address] from January 02- reported as COPD with subplueral intersitial disease/fibroses stable without change (6) HTN (hypertension): Plan: Continue clonidine and labtelol - ECHO performed in January 15, 2021 - report faxed from [facility] - EF 60-65%, normal wall motion, tricial MR, mild with moderate AR, Echo 02/21/2021: Normal LV SF, grade 1 diastolic dysfunction, mild aortic sclerosis, mild aortic regurg, EF 65-70% (7) Foot abrasion: Plan: With blister as originating injury Wound care consulted (8) Rheumatoid arteritis: Plan: With contractures in hands that gets "worsse when she is ill" - on hydroxychlorquine likely for both RA and Sjrogens- continue - Continue Naprosyn - Continue omeprazole, on methylprednisolone at this time (9) Hypokalemia: Plan: Due to decreased oral intake improved. - follow with BMP in the morning Admission and Anticipated Discharge Date Admission Date: February 20, 2021 Subjective Patient is seen at the bedside post bronchoscopy, reports that she feels well, is grateful to be getting more care and investigation into her lung problems. She reports she is not short of breath lying in bed on oxygen mask, but quickly becomes shortness of breath with activity. She denies chest pain, chest pressure, fever, and chills. Review of Systems Review of Systems: Constitutional: Denies fever, chills, malaise Eyes: Denies vision change ENT: Denies ear pain, sore throat, sinus pain Cardiovascular: Denies Chest pain, chest pressure, palpitations, extremity swelling Respiratory: See HPI Gastrointestinal: Denies abdominal pain, nausea, vomiting, constipation, diarrhea Genitourinary: Denies dysuria, urinary frequency Musculoskeletal: Denies acute focal weakness, muscle aches/pain, joint aches/pain Integumentary:Denies acute rash, lesions, bruising Neurological: Endorses global fatigue, denies numbness/tingling Physical Exam Physical Exam: General: A&Ox3. NAD. Cooperative. HEENT: Atraumatic, normocephalic. Pulm: Bibasilar crackles, diminished, on oxygen mask, symmetrical chest rise. No respiratory distress. Cardiac: RRR, -mrg. Radial pulses intact and symmetrical. Abdominal: Nontender, nondistended, soft. BS present. Extremities: Moving all extremities equally, extremities warm and dry Results & Data Results & Data ([facility]) Vital Signs (Past 12 Hours) Vital Signs Temp Pulse Pulse Pulse Resp BP Pulse Ox 02/25/21 16:00 36.8 C 77 18 159/75 H 98 02/25/21 15:46 86 02/25/21 13:44 90 22 90 02/25/21 11:40 36.6 C 68 16 163/91 H 97 02/25/21 11:24 64 18 158/70 H 95 02/25/21 11:15 36.7 C 64 18 150/75 H 95 02/25/21 11:00 36.7 C 64 18 160/69 H 95 02/25/21 10:55 79 16 150/73 H 97 02/25/21 10:50 76 16 177/85 H 97 02/25/21 10:45 65 16 162/75 H 97 02/25/21 10:40 65 18 187/90 H 97 02/25/21 10:35 73 18 163/76 H 97 02/25/21 10:30 68 18 168/64 H 100 02/25/21 10:25 68 18 177/85 H 100 02/25/21 08:00 64 02/25/21 07:22 88 20 94 PG Care Time/CCT Total # of Minutes Spent Total Time Spent with Patient: Total time spent is greater than 50% in coordination of care (as documented) at patient's floor/unit and/or counseling patient: Coding Level of Care Code 88941 Subseq Hosp Care Lvl 3 Diagnoses Pneumonia J18.9 Hypoxia R09.02 Eosinophilic asthma J82.83 Disorder of lung with Sjogren's syndrome M35.02 Pulmonary fibrosis J84.10 HTN (hypertension) I10 Foot abrasion S90.819A Rheumatoid arteritis M05.20 Hypokalemia E87.6
[2021-02-25] MEDS: MONTELUKAST SODIUM 10 MG TABLET PO SCH (22:58)
[2021-02-26] MEDS: ALBUTEROL 0.083% NEBU SOLN 3 ML VIAL NEB SCH ×4 (00:04→19:47)
[2021-02-26] MEDS: CHECK CLONIDINE PATCH PLACEMENT SCH ×3 (01:12→17:26)
[2021-02-26] MEDS: DOXYCYCLINE HYCLATE 100 MG in DEXTROSE 5% 100 ML IV SCH (01:12)
[2021-02-26] MEDS: LABETALOL HCL 100 MG TAB PO SCH ×2 (05:36→17:42)
[2021-02-26 07:05] LABS: Eosinophils # (auto) 0.01 K/uL (0-0.5); Eosinophils % (auto) 0.1 %; Hematocrit (blood only) 39.7 % (37-47); Hemoglobin 12.8 g/dL (12.0-16.0); Immature Granulocytes # (auto) 0.04 K/uL (0.00-0.02); Immature Granulocytes % (auto) 0.3 %; Lymphocytes # (auto) 0.98 K/uL (1.2-3.4); Lymphocytes % (auto) 7.4 %; Mean Corpuscular Hgb Conc 32.2 g/dL (32-36); Mean Corpuscular Volume 86.9 fL (80-100); Monocytes # (auto) 0.59 K/uL (0.11-0.59); Monocytes % (auto) 4.5 %; Neutrophils # (auto) 11.57 K/uL (1.4-6.5); Neutrophils % (auto) 87.7 %; Platelet Count 292 K/uL (130-400); RDW Coefficient of Variation 14.7 % (11.5-14.5); RDW Standard Deviation 46.4 fL (36.4-46.3); Red Blood Count 4.57 M/uL (4.2-5.4); White Blood Count 13.19 K/uL (4.8-10.8)
[2021-02-26] MEDS: PANTOprazole 40 MG TAB PO SCH (07:43)
[2021-02-26] MEDS: SENNA 8.6 MG TAB PO SCH (07:43)
[2021-02-26] MEDS: CETIRIZINE HCL 10 MG TABLET PO SCH (07:43)
[2021-02-26] MEDS: FAMOTIDINE 20 MG TAB PO SCH (07:43)
[2021-02-26] MEDS: HYDROXYCHLOROQUINE SULFATE 200 MG TAB PO SCH ×2 (07:43→20:10)
[2021-02-26] MEDS: UMECLIDINIUM BROMIDE 62.5MCG/BLISTER 7 PUFFS/INHALER INH SCH (07:43)
[2021-02-26] MEDS: FLUTICASONE/VILANTEROL 200/25MCG 14 PUFFS/INHALER INH SCH (07:43)
[2021-02-26 07:49] LABS: BUN Creatinine Ratio 45.3 (10-20); C Reactive Protein 2.63 mg/dl (0-0.29); Calcium 9.1 mg/dl (8.5-10.1); Creatinine Clr Calc Pharmacy 79.8 ml/min; Est GFR (African American) 106.5 ml/min; Est GFR (Non-African American) 91.8 ml/min; Potassium 4.4 mmol/L (3.5-5.1)
[2021-02-26] MEDS: methylPREDNISolone 40 MG in SYRINGE 0 ML IV SCH (09:58)
--- NOTE | 2021-02-26 12:58 | Hospitalist Progress Note ---
Date of Service February 26, 2021 Assessment & Plan (1) Hypoxia: Plan: Flaquita is a 55-year-old female with a past medical history of Sjogren's, asthma, rheumatoid arteritis, hypertension, pulmonary fibrosis, eosinophilic asthma, and interstitial pneumonia who presented to [facility] [address] with tachypnea and shortness of breath with cough. Acute hypoxic respiratory failure 2/2 ILD versus pneumonia Pulmonology consulted, appreciate recommendations Patient status post bronchoscopy 02/25 Procalcitonin negative, Legionella negative, bio fire negative, COVID-19 negative Prednisone 40 mg daily, taper by 5 mg every 48 hours, albuterol nebulizer as n eeded, Incruse Ellipta, continue Breo SPO2 goal greater than 90% Infectious evaluation as noted below Status post 20 mg Lasix 02/25 afternoon, follow diuresis -Patient feeling much better following bronc, attempting to down titrate oxygen, patient feels less short of breath and breathing improved with bronc and Lasix. Continues to have substantial shortness of breath with exertion, no home oxygen requirement. Continue nebulizers every 46 Schedule follow-up at discharge with [facility] pulmonology, forward records (2) Pneumonia: Plan: CXR with progression of bilateral opacities, leukocytosis 15 uptrending to 16 today, patient with increased white sputum production - Viral vs. Bacterial vs. worsening of disease Leukocytosis downtrending -Continue doxycycline, 7 day course to be complete 02/28 -Steroids as above for underlying? ILD - CRP downtrending from 30.4-2.6, PCT negative - BIOfire pending - CT-C: Patchy areas of groundglass attenuation and septal thickening throughout bilateral lungs might represent multifocal atypical pneumonia/Covid. Short-term follow-up with CT of the chest without IV contrast on nonemergency basis in 4-6 weeks is suggested document resolution. 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 and her case is mild- - she has significant disease on her mother's side of the family and endorses 4- 5 of her siblings has from this - appreciate pulmonary assistance - Xray faxed over from [facility] from January 02- reported as COPD with subplueral intersitial disease/fibroses stable without change (6) HTN (hypertension): Plan: Continue clonidine and labtelol - ECHO performed in January 15, 2021 - report faxed from [facility] - EF 60-65%, normal wall motion, tricial MR, mild with moderate AR, Echo 02/21/2021: Normal LV SF, grade 1 diastolic dysfunction, mild aortic sclerosis, mild aortic regurg, EF 65-70% (7) Foot abrasion: Plan: With blister as originating injury Wound care consulted (8) Rheumatoid arteritis: Plan: With contractures in hands that gets "worse when she is ill" - on hydroxychlorquine likely for both RA and Sjrogens- continue - Continue Naprosyn - Continue omeprazole, on methylprednisolone at this time (9) Hypokalemia: Plan: Due to decreased oral intake improved. - follow with BMP in the morning Admission and Anticipated Discharge Date Admission Date: February 20, 2021 Yeimi Smas is seen at the bedside this morning. She reports she feels very tired, and is discouraged by her long hospital stay but notes she is happy that her oxygen requirement is lowering. Discussed that she has gone from requiring 15 L Oxymizer to 3 L nasal cannula, and encouragement provided. Patient appreciative of this,. She reports that she is not short of breath at rest, but rapidly becomes very short of breath with exertion. Does not have home oxygen requirement. She reports her nebulizer treatments help her breathing substantially. She denies fever, chills, sweats, chest pain, chest pressure, nausea/vomiting/diarrhea overnight. Endorses problems with her IV infiltrating difficulty with doxycycline IV, request converted to p.o. if possible. Given good bioavailability this is reasonable, discussed potential for pill esophagitis and importance to take with water and sitting up. Requests update be given to her fianc, otherwise no questions or concerns at time of bedside assessment. Review of Systems Review of Systems: Constitutional: Denies fever, chills, malaise Eyes: Denies vision change ENT: Denies ear pain, sore throat, sinus pain Cardiovascular: Denies Chest pain, chest pressure, palpitations, extremity swelling Respiratory: See HPI Gastrointestinal: Denies abdominal pain, nausea, vomiting, constipation, diarrhea Genitourinary: Denies dysuria, urinary frequency Musculoskeletal: Denies acute focal weakness Integumentary:Denies acute rash, lesions. Endorses bruises at multiple IV sticks Neurological: Denies headache, numbness, tingling, focal weakness Physical Exam Physical Exam: General: APeers fatigued, no acute distress, cooperative. On 3 L nasal cannula. HEENT: Atraumatic, normocephalic. Visual acuity and hearing grossly intact. Pulm: Breathing without overt wheezes/rales at rest, some basilar crackles improved from prior. Chest rise symmetrical. No acute respiratory distress. Cardiac: RRR, -mrg. Radial pulses intact and symmetrical. Abdominal: Nontender, nondistended, soft. BS present. Extremities: Warm, dry. Moving all extremities equally Results & Data Results & Data ([facility]) Vital Signs (Past 12 Hours) Vital Signs Temp Pulse Pulse Pulse Resp BP Pulse Ox 02/26/21 12:44 68 18 92 02/26/21 11:00 36.7 C 70 20 146/82 H 94 02/26/21 08:00 61 02/26/21 07:32 36.8 C 71 18 160/83 H 92 02/26/21 07:12 73 16 94 02/26/21 04:05 36.7 C 69 18 166/79 H 99 PG Care Time/CCT Total # of Minutes Spent Total Time Spent with Patient: Total time spent is greater than 50% in coordination of care (as documented) at patient's floor/unit and/or counseling patient: Coding Level of Care Code 80333 Subseq Hosp Care Lvl 3 Diagnoses Hypoxia R09.02 Pneumonia J18.9 Eosinophilic asthma J82.83 Disorder of lung with Sjogren's syndrome M35.02 Pulmonary fibrosis J84.10 HTN (hypertension) I10 Foot abrasion S90.819A Rheumatoid arteritis M05.20 Hypokalemia E87.6
--- NOTE | 2021-02-26 13:43 | Pulmonology Progress Note ---
Date of Service February 26, 2021 Assessment & Plan (1) Bilateral interstitial pneumonia: (2) Acute respiratory failure with hypoxia: (3) Rheumatoid arteritis: (4) Sjogren's disease: (5) Asthma exacerbation: (6) Insomnia: (7) HTN (hypertension): Plan: 55-year-old female with a past medical history of Sjogren's disorder, rheumatoid arthritis, asthma and tobacco abuse presenting to the ER due to hypoxemic respiratory failure. Groundglass opacities on CT chest: Likely acute flare of interstitial lung disease. Possible cellular NSIP given history of Sjogren's disease and LAKEISHA positivity. Reviewed the bronchoscopy cytology from the brush and BAL fluid. Cytology was negative for fungal elements. No malignancy seen. Cultures pending. Oxygen demands have improved. Anticipate she will require home oxygen upon discharge at least temporarily. I have decreased her steroid dose to 40 mg p.o. daily. Would recommend tapering by 5 mg every 2 days. She will need outpatient pulmonary follow-up at [facility]. Acute asthma exacerbation: Sjogren's disease can mimic asthma. DuoNebs every 4 hours as needed. She will give her nebulizer treatment now. Incruse Ellipta added 02/23 to her Breo regimen. Anxiety playing a role. Recommended outpatient follow-up with a mental health provider. Incentive spirometry and flutter valve encouraged. A 7-day course of doxycycline will be adequate. Insomnia: Encourage proper sleep hygiene. Continue melatonin. Hypertension: Echocardiogram with evidence of grade 1 diastolic dysfunction and mild aortic valve sclerosis. No evidence of pulmonary hypertension was seen. Remains hypertensive. We will hold on further diuresis as her BUN is starting to climb. Please make sure that her outpatient pulmonary provider at [facility] receives the records regarding her bronchoscopy results and cultures. Admission and Anticipated Discharge Date Admission Date: February 20, 2021 Subjective Patient seen and examined this morning. She is emotional at times. She notes that she had an episode where she was gasping for breath at night. She generally feels lethargic. Her oxygen demands have decreased to 3 L and she is currently satting in the low to mid 90s. No fevers or chills. No hemoptysis postbronchodilator. Review of Systems Review of Systems: All systems reviewed & are unremarkable except as noted in HPI & below Physical Exam Physical Exam: Constitutional: She appears tired. 3 [address] oxygen mask in place. Anxious appearing. Eyes: Pupils are equal round and reactive to light. Conjunctivae are normal. Anicteric sclera. Ears nose, mouth and throat: Mallampati class 2. Normal posterior oropharynx. Uvula is midline. Neck: Trachea is midline. Visual inspection is normal. Respiratory: Diminished lung sounds bilaterally. Mildly prolonged phase of exhalation. Cardiovascular: Regular rate and rhythm. No murmurs. No edema. Clubbing present although difficult to fully evaluate as she has nail kenyan on. Gastrointestinal: Normal bowel sounds, soft, nontender and nondistended. No hepatosplenomegaly noted. Musculoskeletal: No cyanosis. Patient is able to move all extremities. Strength is 5 out of 5 in the upper and lower extremities. Skin: No rashes, warm dry and intact. Neurologic: No obvious focal neurological deficits seen. Psychiatric: Alert and oriented x3 with a euthymic affect. Results & Data Results & Data ([facility]) Vital Signs (Past 12 Hours) Vital Signs Temp Pulse Pulse Pulse Resp BP Pulse Ox 02/26/21 12:44 68 18 92 02/26/21 11:00 98.1 F 70 20 146/82 H 94 02/26/21 08:00 61 02/26/21 07:32 98.2 F 71 18 160/83 H 92 02/26/21 07:12 73 16 94 02/26/21 04:05 98.1 F 69 18 166/79 H 99 PG Care Time/CCT Total # of Minutes Spent Total Time Spent with Patient: Total time spent is greater than 50% in coordination of care (as documented) at patient's floor/unit and/or counseling patient: Coding Level of Care Code 30671 Subseq Hosp Care Lvl 3 Diagnoses Bilateral interstitial pneumonia J84.9 Acute respiratory failure with hypoxia J96.01 Rheumatoid arteritis M05.20 Sjogren's disease M35.00 Asthma exacerbation J45.901 Insomnia G47.00 HTN (hypertension) I10
[2021-02-26] MEDS: DOXYCYCLINE HYCLATE 100 MG CAP PO SCH ×2 (14:21→20:11)
[2021-02-26] MEDS: ENOXAPARIN INJ 40 MG/0.4 ML SYR SQ SCH (17:42)
[2021-02-26] MEDS: MONTELUKAST SODIUM 10 MG TABLET PO SCH (20:11)
[2021-02-27] MEDS: ALBUTEROL 0.083% NEBU SOLN 3 ML VIAL NEB SCH ×4 (00:38→19:26)
[2021-02-27] MEDS: CHECK CLONIDINE PATCH PLACEMENT SCH ×3 (01:19→16:00)
[2021-02-27] MEDS: LABETALOL HCL 100 MG TAB PO SCH ×2 (06:34→17:31)
[2021-02-27] MEDS: UMECLIDINIUM BROMIDE 62.5MCG/BLISTER 7 PUFFS/INHALER INH SCH (08:48)
[2021-02-27] MEDS: DOXYCYCLINE HYCLATE 100 MG CAP PO SCH ×2 (08:49→20:51)
[2021-02-27] MEDS: FLUTICASONE/VILANTEROL 200/25MCG 14 PUFFS/INHALER INH SCH (08:49)
[2021-02-27] MEDS: PANTOprazole 40 MG TAB PO SCH (08:49)
[2021-02-27] MEDS: HYDROXYCHLOROQUINE SULFATE 200 MG TAB PO SCH ×2 (08:49→20:51)
[2021-02-27] MEDS: SENNA 8.6 MG TAB PO SCH (08:49)
[2021-02-27] MEDS: CETIRIZINE HCL 10 MG TABLET PO SCH (08:49)
[2021-02-27] MEDS: FAMOTIDINE 20 MG TAB PO SCH (08:50)
[2021-02-27] MEDS ORDERED: predniSONE 20 MG TAB PO SCH (09:00)
--- NOTE | 2021-02-27 15:30 | Pulmonology Progress Note ---
Date of Service February 27, 2021 Assessment & Plan (1) Bilateral interstitial pneumonia: (2) Acute respiratory failure with hypoxia: (3) Rheumatoid arteritis: (4) Sjogren's disease: (5) Asthma exacerbation: (6) Insomnia: (7) HTN (hypertension): Plan: 55-year-old female with a past medical history of Sjogren's disorder, rheumatoid arthritis, asthma and tobacco abuse presenting to the ER due to hypoxemic respiratory failure. Groundglass opacities on CT chest: Likely acute flare of interstitial lung disease. Possible cellular NSIP given history of Sjogren's disease and LAKEISHA positivity. Reviewed the bronchoscopy cytology from the brush and BAL fluid. Cytology was negative for fungal elements. No malignancy seen. Cultures negative to date. Anticipate she will require home oxygen upon discharge at least temporarily. I have decreased her steroid dose to 40 mg p.o. daily. Would recommend tapering by 5 mg every 2 days. She will need outpatient pulmonary follow-up at [facility]. Acute asthma exacerbation: Sjogren's disease can mimic asthma. DuoNebs every 4 hours as needed. Incruse Ellipta added 02/23 to her Breo regimen. Anxiety playing a role. Recommended outpatient follow-up with a mental health provider. Incentive spirometry and flutter valve encouraged. A 7-day course of doxycycline will be adequate. Insomnia: Encourage proper sleep hygiene. Continue melatonin. Hypertension: Echocardiogram with evidence of grade 1 diastolic dysfunction and mild aortic valve sclerosis. No evidence of pulmonary hypertension was seen. Please make sure that her outpatient pulmonary provider at [facility] receives the records regarding her bronchoscopy results and cultures. Pulmonary will sign off at this time. Thank you for the consultation. Please call with questions. Admission and Anticipated Discharge Date Admission Date: February 20, 2021 Subjective Patient seen and examined this afternoon. She is very anxious. She endorses shortness of breath. She is uncertain if she has improved much in the last couple of days ago. Denies any coughing. No fevers or chills overnight. Review of Systems Review of Systems: All systems reviewed & are unremarkable except as noted in HPI & below Physical Exam Physical Exam: Constitutional: She appears tired. 3 [address] oxygen mask in place. Anxious appearing. Eyes: Pupils are equal round and reactive to light. Conjunctivae are normal. Anicteric sclera. Ears nose, mouth and throat: Mallampati class 2. Normal posterior oropharynx. Uvula is midline. Neck: Trachea is midline. Visual inspection is normal. Respiratory: Diminished lung sounds bilaterally. Mildly prolonged phase of exhalation. Cardiovascular: Regular rate and rhythm. No murmurs. No edema. Clubbing present although difficult to fully evaluate as she has nail tamazight on. Gastrointestinal: Normal bowel sounds, soft, nontender and nondistended. No hepatosplenomegaly noted. Musculoskeletal: No cyanosis. Patient is able to move all extremities. Strength is 5 out of 5 in the upper and lower extremities. Skin: No rashes, warm dry and intact. Neurologic: No obvious focal neurological deficits seen. Psychiatric: Alert and oriented x3 with a euthymic affect. Results & Data Results & Data ([facility]) Vital Signs (Past 12 Hours) Vital Signs Temp Pulse Pulse Resp BP Pulse Ox 02/27/21 15:12 97.7 F 89 26 H 166/78 H 92 02/27/21 12:57 80 18 94 02/27/21 11:23 82 20 162/81 H 94 02/27/21 09:09 98.1 F 78 21 144/81 H 96 02/27/21 07:02 82 20 90 02/27/21 03:30 99.1 F 76 20 159/85 H 99 Vital signs, labs and imaging reviewed PG Care Time/CCT Total # of Minutes Spent Total Time Spent with Patient: Total time spent is greater than 50% in coordination of care (as documented) at patient's floor/unit and/or counseling patient: Coding Level of Care Code 54090 Subseq Hosp Care Lvl 2 Diagnoses Bilateral interstitial pneumonia J84.9 Acute respiratory failure with hypoxia J96.01 Rheumatoid arteritis M05.20 Sjogren's disease M35.00 Asthma exacerbation J45.901 Insomnia G47.00 HTN (hypertension) I10
--- NOTE | 2021-02-27 17:03 | Hospitalist Progress Note ---
Date of Service February 27, 2021 Assessment & Plan (1) Hypoxia: Plan: Flaquita is a 55-year-old female with a past medical history of Sjogren's, asthma, rheumatoid arteritis, hypertension, pulmonary fibrosis, eosinophilic asthma, and interstitial pneumonia who presented to [facility] with tachypnea and shortness of breath with cough. Plan: Improving, dyspnea and oxygen requirements improved from prior although patient continues to have limiting dyspnea with exertion. Based on progression will see if patient is able to engage meaningfully with physical therapy. Anticipate that she will have a outpatient steroid taper and will require pulm onary follow-up at [facility], at this time pending PT/OT assessment for placement recommendations. Anticipate that she will continue to have a home/discharge oxygen requirement, if rehab/stepdown placement not recommended will require two-step prior to discharge Acute hypoxic respiratory failure 2/2 ILD versus pneumonia Pulmonology consulted, appreciate recommendations. Signed off 02/27 Patient status post bronchoscopy 02/25 Procalcitonin negative, Legionella negative, bio fire negative, COVID-19 negative Prednisone as follows: 15: 40 mg :35mg :30mg :25mg 03/06-03/07:20mg 03/08-03/09:15mg 03/10-03/11:10mg 03/12-03/13:5mg - albuterol nebulizer as needed, Incruse Ellipta, continue Breo SPO2 goal greater than 90% Infectious evaluation as noted below -Patient feeling much better following bronc, attempting to down titrate oxygen, patient feels less short of breath and breathing improved with bronc and Lasix. Continues to have substantial shortness of breath with exertion, no home oxygen requirement. Continue nebulizers every 46 Schedule follow-up at discharge with [facility] pulmonology, forward records (2) Pneumonia: Plan: CXR with progression of bilateral opacities, leukocytosis improving - Viral vs. Bacterial vs. worsening of disease Leukocytosis downtrending -Continue doxycycline, 7 day course to be complete 02/28 -Steroids as above for underlying? ILD - CRP downtrending from 30.4-2.6, PCT negative - BIOfire pending - CT-C: Patchy areas of groundglass attenuation and septal thickening throughout bilateral lungs might represent multifocal atypical pneumonia/Covid. Short-term follow-up with CT of the chest without IV contrast on nonemergency basis in 4-6 weeks is suggested document resolution. - oxygen support to keep SPO2 >88% - Pulmonary consulted- appreciate assistance Sputum culture ngtd (3) Eosinophilic asthma: Plan: Per patient - unsure of diagnostics- she also endorses that she never thinks she has had a bronchoscopy - Sputum EOS sent - eval inconsitent, tx as interstitial pna as noted otherwise (4) Disorder of lung with Sjogren's syndrome: Plan: As above (5) Pulmonary fibrosis: Plan: Patient reports that she follows closely with her director speech language and her case is mild- - she has significant disease on her mother's side of the family and endorses 4- 5 of her siblings has from this - appreciate pulmonary assistance - Xray faxed over from [facility] from January 02- reported as COPD with subplueral intersitial disease/fibroses stable without change (6) HTN (hypertension): Plan: Continue clonidine and labetalol - ECHO performed in January 15, 2021 - report faxed from [facility] - EF 60-65%, normal wall motion, tricial MR, mild with moderate AR, Echo 02/21/2021: Normal LV SF, grade 1 diastolic dysfunction, mild aortic sclerosis, mild aortic regurg, EF 65-70% (7) Foot abrasion: Plan: With blister as originating injury Wound care consulted (8) Rheumatoid arteritis: Plan: With contractures in hands that gets "worse when she is ill" - on hydroxychlorquine likely for both RA and Sjrogens- continue - Continue Naprosyn - Continue omeprazole - Steroids as noted otherwise (9) Hypokalemia: Plan: Due to decreased oral intake improved. - follow with BMP in the morning Admission and Anticipated Discharge Date Admission Date: February 20, 2021 Subjective Patient is seen at the bedside this morning. She appears more alert, more well rested than previous. Reports she had a good night sleep, continues to be short of breath with ambulation but feels she is breathing better on nasal cannula at rest. No fever/chills/sweats. No abdominal pain, appetite "okay ". Encouragement provided, no additional questions or concerns at time of assessment. Review of Systems Review of Systems: Constitutional: Denies fever, chills. Endorses fatigue Eyes: Denies vision change ENT: Denies ear pain, sore throat, sinus pain Cardiovascular: Denies Chest pain, chest pressure, palpitations, extremity swelling Respiratory: See HPI Gastrointestinal: Denies abdominal pain, nausea, vomiting, constipation, diarrhea Genitourinary: Denies dysuria, urinary frequency Musculoskeletal: Denies acute focal weakness Integumentary:Denies acute rash, lesions Neurological: Denies headache, numbness, tingling, focal weakness Physical Exam Physical Exam: General: A&Ox3. Appears more well rested, alert today. Nontoxic. Anxious. HEENT: Atraumatic, normocephalic. Visual acuity, hearing grossly intact. Pupils equal and reactive to light and accommodation Pulm: Diminished, moderate air movement bilaterally improved from prior without overt wheezes/rales/rhonchi. Symmetrical chest rise. No increase work of breathing. No respiratory distress. Cardiac: RRR, -mrg. Radial pulses intact and symmetrical. Abdominal: Nontender, nondistended, soft. BS present. Results & Data Results & Data ([facility]) Vital Signs (Past 12 Hours) Vital Signs Temp Pulse Pulse Resp BP Pulse Ox 02/27/21 15:12 36.5 C 89 26 H 166/78 H 92 02/27/21 12:57 80 18 94 02/27/21 11:23 82 20 162/81 H 94 02/27/21 09:09 36.7 C 78 21 144/81 H 96 02/27/21 07:02 82 20 90 PG Care Time/CCT Total # of Minutes Spent Total Time Spent with Patient: Total time spent is greater than 50% in coordination of care (as documented) at patient's floor/unit and/or counseling patient: Coding Level of Care Code 90007 Subseq Hosp Care Lvl 3 Diagnoses Hypoxia R09.02 Pneumonia J18.9 Eosinophilic asthma J82.83 Disorder of lung with Sjogren's syndrome M35.02 Pulmonary fibrosis J84.10 HTN (hypertension) I10 Foot abrasion S90.819A Rheumatoid arteritis M05.20 Hypokalemia E87.6
[2021-02-27] MEDS: ONDANSETRON 4 MG OD TAB PO PRN (17:28)
[2021-02-27] MEDS: cloNIDine HCL 0.3 MG/24 HR TRANSDERM SYS TD SCH (17:29)
[2021-02-27] MEDS: ENOXAPARIN INJ 40 MG/0.4 ML SYR SQ SCH (17:30)
[2021-02-27] MEDS: MONTELUKAST SODIUM 10 MG TABLET PO SCH (20:52)
[2021-02-27] MEDS: MELATONIN 3 MG TAB PO PRN (20:57)
[2021-02-28] MEDS: ALBUTEROL 0.083% NEBU SOLN 3 ML VIAL NEB SCH ×4 (01:23→20:03)
[2021-02-28] MEDS: CHECK CLONIDINE PATCH PLACEMENT SCH ×4 (02:59→23:03)
[2021-02-28] MEDS: LABETALOL HCL 100 MG TAB PO SCH ×2 (04:26→17:04)
[2021-02-28 08:11] LABS: Eosinophils # (auto) 0.19 K/uL (0-0.5); Eosinophils % (auto) 1.6 %; Hematocrit (blood only) 37.9 % (37-47); Hemoglobin 12.2 g/dL (12.0-16.0); Immature Granulocytes # (auto) 0.04 K/uL (0.00-0.02); Immature Granulocytes % (auto) 0.3 %; Lymphocytes # (auto) 2.63 K/uL (1.2-3.4); Lymphocytes % (auto) 21.6 %; Mean Corpuscular Hemoglobin 27.4 pg (25-34); Mean Corpuscular Hgb Conc 32.2 g/dL (32-36); Mean Corpuscular Volume 85.2 fL (80-100); Mean Platelet Volume 10.8 fL (7.4-10.4); Monocytes # (auto) 0.56 K/uL (0.11-0.59); Monocytes % (auto) 4.6 %; Neutrophils # (auto) 8.73 K/uL (1.4-6.5); Neutrophils % (auto) 71.9 %; Platelet Count 271 K/uL (130-400); RDW Coefficient of Variation 14.6 % (11.5-14.5); RDW Standard Deviation 45.4 fL (36.4-46.3); Red Blood Count 4.45 M/uL (4.2-5.4); White Blood Count 12.15 K/uL (4.8-10.8)
[2021-02-28] MEDS: PANTOprazole 40 MG TAB PO SCH (08:41)
[2021-02-28] MEDS: CETIRIZINE HCL 10 MG TABLET PO SCH (08:41)
[2021-02-28] MEDS: FAMOTIDINE 20 MG TAB PO SCH (08:41)
[2021-02-28] MEDS: DOXYCYCLINE HYCLATE 100 MG CAP PO SCH ×2 (08:41→20:26)
[2021-02-28] MEDS: SENNA 8.6 MG TAB PO SCH (08:41)
[2021-02-28] MEDS: HYDROXYCHLOROQUINE SULFATE 200 MG TAB PO SCH ×2 (08:41→20:26)
[2021-02-28] MEDS: predniSONE 5 MG TAB PO SCH (08:42)
[2021-02-28] MEDS: FLUTICASONE/VILANTEROL 200/25MCG 14 PUFFS/INHALER INH SCH (08:42)
[2021-02-28] MEDS: UMECLIDINIUM BROMIDE 62.5MCG/BLISTER 7 PUFFS/INHALER INH SCH (08:42)
[2021-02-28 08:44] LABS: BUN Creatinine Ratio 40.4 (10-20); Calcium 8.9 mg/dl (8.5-10.1); Creatinine Clr Calc Pharmacy 91.2 ml/min; Est GFR (African American) 116.7 ml/min; Est GFR (Non-African American) 100.7 ml/min; Potassium 4.3 mmol/L (3.5-5.1)
[2021-02-28] MEDS ORDERED: predniSONE 20 MG TAB PO SCH (09:00)
--- NOTE | 2021-02-28 14:03 | XRay Report ---
XR chest 1V portable INDICATION: MN ^infiltrates. TECHNIQUE: Single frontal radiograph of the chest was obtained. Comparison: Comparison is made to chest one view 02/25/2021 FINDINGS: No lines and tubes are seen. The cardiomediastinal silhouette is normal. Multifocal airspace opacitie s are slightly improved from prior exam. No evidence of pleural effusion or pneumothorax. IMPRESSION: Minimal interval improvement in multifocal airspace opacities. ACT 112: Negative or not required by law. Electronically signed by: Ramy Wagner M.D. 02/28/2021 2:01 PM
[2021-02-28] MEDS: ENOXAPARIN INJ 40 MG/0.4 ML SYR SQ SCH (17:04)
--- NOTE | 2021-02-28 17:56 | Hospitalist Progress Note ---
Date of Service February 28, 2021 Assessment & Plan (1) Hypoxia: Plan: Flaquita is a 55-year-old female with a past medical history of Sjogren's, asthma, rheumatoid arteritis, hypertension, pulmonary fibrosis, eosinophilic asthma, and interstitial pneumonia who presented to [facility] with tachypnea and shortness of breath with cough. Plan: Improving, dyspnea and oxygen requirements improved from prior although patient continues to have limiting dyspnea with exertion. Based on progression will see if patient is able to engage meaningfully with physical therapy. Anticipate that she will have a outpatient steroid taper and will require pulm onary follow-up at [facility]. Patient seen by PT, anticipate discharge home. Two-step completed this evening, patient will require home oxygen. Setting of home oxygen with case management, anticipate discharge tomorrow morning Acute hypoxic respiratory failure 2/2 ILD versus pneumonia Pulmonology consulted, appreciate recommendations. Signed off 02/27 Patient status post bronchoscopy 02/25 Procalcitonin negative, Legionella negative, bio fire negative, COVID-19 negative Prednisone as follows: : 40 mg :35mg :30mg :25mg 03/06-03/07:20mg 03/08-03/09:15mg 03/10-03/11:10mg 03/12-03/13:5mg - albuterol nebulizer as needed, Incruse Ellipta, continue Breo SPO2 goal greater than 90% Infectious evaluation as noted below -Patient feeling much better following bronc, attempting to down titrate oxygen, patient feels less short of breath and breathing improved with bronc and Lasix. Continue nebulizers every 46 Schedule follow-up at discharge with [facility] pulmonology, forward records Pending set up with home oxygen after two-step was completed today as noted, anticipate discharge home on home oxygen and follow-up to PCP/pulm (2) Pneumonia: Plan: Improved - Viral vs. Bacterial vs. worsening of disease Leukocytosis downtrending -Continue doxycycline, 7 day course to be complete 02/28 -Steroids as above for underlying? ILD - CRP downtrending during admission, - BIOfire pending - CT-C: Patchy areas of groundglass attenuation and septal thickening throughout bilateral lungs might represent multifocal atypical pneumonia/Covid. Short-term follow-up with CT of the chest without IV contrast on nonemergency basis in 4-6 weeks is suggested document resolution. - oxygen support to keep SPO2 >88% - Pulmonary consulted- appreciate assistance, signed off as noted Sputum culture ngtd (3) Eosinophilic asthma: Plan: Per patient - unsure of diagnostics- she also endorses that she never thinks she has had a bronchoscopy - Sputum EOS sent - eval inconsitent, tx as interstitial pna as noted otherwise (4) Disorder of lung with Sjogren's syndrome: Plan: As above (5) Pulmonary fibrosis: Plan: Patient reports that she follows closely with her special service representative and her case is mild- - she has significant disease on her mother's side of the family and endorses 4- 5 of her siblings has from this - appreciate pulmonary assistance - Xray faxed over from [facility] from January 02- reported as COPD with subplueral intersitial disease/fibroses stable without change (6) HTN (hypertension): Plan: Continue clonidine and labetalol - ECHO performed in January 15, 2021 - report faxed from [facility] - EF 60-65%, normal wall motion, tricial MR, mild with moderate AR, Echo 02/21/2021: Normal LV SF, grade 1 diastolic dysfunction, mild aortic sclerosis, mild aortic regurg, EF 65-70% (7) Foot abrasion: Plan: With blister as originating injury Wound care consulted (8) Rheumatoid arteritis: Plan: With contractures in hands that gets "worse when she is ill" - on hydroxychlorquine likely for both RA and Sjrogens- continue - Continue Naprosyn - Continue omeprazole - Steroids as noted otherwise (9) Hypokalemia: Plan: Due to decreased oral intake improved. - follow with BMP in the morning Admission and Anticipated Discharge Date Admission Date: February 20, 2021 Subjective Seen at bedside. Feels improved and is breathign well at rest, but notes is discouraged because she quickly desats with oxygen. Attempted to go to the bathroom without O2 and rapdily desaturated, patient reports she felt completely out of breath and nauseous. At time of assessment she is tearful, but with oxygen levels back over 90% and breathing comfortably. Review of Systems Review of Systems: Constitutional: Denies fever, chills. Endorses fatigue, distressed as noted in HPI Eyes: Denies vision change ENT: Denies ear pain, sore throat, sinus pain Cardiovascular: Denies Chest pain, chest pressure, palpitations, extremity swelling Respiratory: See HPI Gastrointestinal: Denies abdominal pain, nausea, vomiting, constipation, diarrhea Genitourinary: Denies dysuria, urinary frequency Musculoskeletal: Denies acute focal weakness Integumentary:Denies acute rash, lesions Neurological: Denies numbness, tingling, focal weakness. Endorses global weakness Physical Exam Physical Exam: General: A&Ox3. Tearful, see subjective, nontoxic HEENT: Atraumatic, normocephalic. Visual acuity, hearing grossly intact. Pupils equal and reactive to light and accommodation Pulm: Moderate air movement without overt wheezes/rales/rhonchi. Symmetrical chest rise. No increase work of breathing. No respiratory distress. Cardiac: RRR, -mrg. Radial pulses intact and symmetrical. Abdominal: Nontender, nondistended, soft. BS present. Results & Data Results & Data ([facility]) Vital Signs (Past 12 Hours) Vital Signs Temp Pulse Pulse Pulse Pulse Pulse Pulse 02/28/21 17:22 96 H 90 116 H 118 H 02/28/21 15:56 77 02/28/21 14:48 36.9 C 89 02/28/21 12:50 02/28/21 11:48 36.4 C L 02/28/21 08:00 64 02/28/21 07:23 36.7 C 02/28/21 07:18 Pulse Pulse Pulse Pulse Resp Resp Resp 02/28/21 17:22 118 H 96 H 71 19 18 02/28/21 15:56 02/28/21 14:48 22 02/28/21 12:50 87 18 02/28/21 11:48 77 18 02/28/21 08:00 02/28/21 07:23 70 17 02/28/21 07:18 77 18 Resp Resp Resp Resp Resp BP BP 02/28/21 17:22 22 20 21 18 18 02/28/21 15:56 02/28/21 14:48 181/81 H 02/28/21 12:50 02/28/21 11:48 173/73 H 02/28/21 08:00 02/28/21 07:23 134/67 02/28/21 07:18 Pulse Ox Pulse Ox Pulse Ox Pulse Ox Pulse Ox Pulse Ox Pulse Ox 02/28/21 17:22 86 L 91 86 L 90 85 L 93 02/28/21 15:56 02/28/21 14:48 91 02/28/21 12:50 96 02/28/21 11:48 93 02/28/21 08:00 02/28/21 07:23 93 02/28/21 07:18 93 Pulse Ox 02/28/21 17:22 87 L 02/28/21 15:56 02/28/21 14:48 02/28/21 12:50 02/28/21 11:48 02/28/21 08:00 02/28/21 07:23 02/28/21 07:18 PG Care Time/CCT Total # of Minutes Spent Total Time Spent with Patient: Total time spent is greater than 50% in coordination of care (as documented) at patient's floor/unit and/or counseling patient: Coding Level of Care Code 72953 Subseq Hosp Care Lvl 2 Diagnoses Hypoxia R09.02 Pneumonia J18.9 Eosinophilic asthma J82.83 Disorder of lung with Sjogren's syndrome M35.02 Pulmonary fibrosis J84.10 HTN (hypertension) I10 Foot abrasion S90.819A Rheumatoid arteritis M05.20 Hypokalemia E87.6
[2021-02-28] MEDS: ONDANSETRON 4 MG OD TAB PO PRN (20:26)
[2021-02-28] MEDS: MONTELUKAST SODIUM 10 MG TABLET PO SCH (20:26)
[2021-02-28] MEDS: MELATONIN 3 MG TAB PO PRN (20:39)
[2021-03-01] MEDS: ALBUTEROL 0.083% NEBU SOLN 3 ML VIAL NEB SCH ×2 (00:04→07:05)
[2021-03-01] MEDS: LABETALOL HCL 100 MG TAB PO SCH (04:46)
[2021-03-01 06:53] LABS: Basophils # (auto) 0.01 K/uL (0-0.2); Basophils % (auto) 0.1 %; Eosinophils # (auto) 0.16 K/uL (0-0.5); Eosinophils % (auto) 1.5 %; Hematocrit (blood only) 36.2 % (37-47); Hemoglobin 11.8 g/dL (12.0-16.0); Immature Granulocytes # (auto) 0.05 K/uL (0.00-0.02); Immature Granulocytes % (auto) 0.5 %; Lymphocytes # (auto) 2.61 K/uL (1.2-3.4); Lymphocytes % (auto) 23.8 %; Mean Corpuscular Hemoglobin 27.6 pg (25-34); Mean Corpuscular Hgb Conc 32.6 g/dL (32-36); Mean Corpuscular Volume 84.8 fL (80-100); Mean Platelet Volume 10.8 fL (7.4-10.4); Monocytes % (auto) 5.5 %; Neutrophils # (auto) 7.52 K/uL (1.4-6.5); Neutrophils % (auto) 68.6 %; Platelet Count 270 K/uL (130-400); RDW Coefficient of Variation 14.6 % (11.5-14.5); RDW Standard Deviation 44.8 fL (36.4-46.3); Red Blood Count 4.27 M/uL (4.2-5.4); White Blood Count 10.95 K/uL (4.8-10.8)
[2021-03-01 07:22] LABS: BUN Creatinine Ratio 34.3 (10-20); Calcium 8.9 mg/dl (8.5-10.1); Creatinine Clr Calc Pharmacy 85.3 ml/min; Est GFR (African American) 114.4 ml/min; Est GFR (Non-African American) 98.7 ml/min; Potassium 4.1 mmol/L (3.5-5.1)
[2021-03-01] MEDS: FAMOTIDINE 20 MG TAB PO SCH ×2 (09:01→10:24)
[2021-03-01] MEDS: FLUTICASONE/VILANTEROL 200/25MCG 14 PUFFS/INHALER INH SCH (09:01)
[2021-03-01] MEDS: CHECK CLONIDINE PATCH PLACEMENT SCH (09:01)
[2021-03-01] MEDS: CETIRIZINE HCL 10 MG TABLET PO SCH ×2 (09:01→10:24)
[2021-03-01] MEDS: HYDROXYCHLOROQUINE SULFATE 200 MG TAB PO SCH (09:01)
[2021-03-01] MEDS: DOXYCYCLINE HYCLATE 100 MG CAP PO SCH (09:01)
[2021-03-01] MEDS: predniSONE 5 MG TAB PO SCH (09:02)
[2021-03-01] MEDS: PANTOprazole 40 MG TAB PO SCH (09:02)
[2021-03-01] MEDS: UMECLIDINIUM BROMIDE 62.5MCG/BLISTER 7 PUFFS/INHALER INH SCH (09:02)
[2021-03-01] MEDS: SENNA 8.6 MG TAB PO SCH (09:02)
[2021-03-01] MEDS ORDERED: predniSONE 10 MG TABLET PO ONE (10:45)
[2021-03-01 11:10] VITALS: TEMP 98.2; O2SAT 95
[2021-03-01 12:16] VITALS: BP 173/73; PULSE 84
--- NOTE | 2021-03-01 15:47 | Discharge Summary ---
Date of Service March 01, 2021 Admission HPI Per Admitting Provider 55 YOF with past medical history of: Eosinophilic asthma, Sjorgen's disease, mild pulmonary fibrosis, HTN, RA, GERD. Patient is normal patient of [facility]. Patient was brought here today for increasing in shortness of breath, cough. Patient endorses that this acutely got worse with increase in thick white sputum production as well as vomiting. This started on Thursday after a large blister on the bottom of her right foot burst. She initially went hiking last weekend on a trail in [place]. Developed large "golf-ball" sized blister that then popped draining red/yellow fluid. She went to urgent care and was placed on Keflex. She came to the [facility] today with tachypnea and hypoxia via EMS secondary to [place] being on divert. She was recorded at 72% on RA on arrival and was placed to 5LNC with increase in SPo2 to 88-92%, received a nebulizer and CXR. Her CXR has bilateral opacities LT>RT, Her COVID test is negative. She was given a dose of Zosyn IV and hospitalist team was called for admission. Patient is tachypnea and conversationally short of breath during interview. She states that normally every 3 months she is put on prednisone taper and Doxycycline for her Asthma. She is on hydroxychloroquine for her RA, which when she gets sick she develops contractors in her hands. I was able to get in touch with her State Pilot Dr. Rod at [facility] He is uncertain of her EOS asthma being diagnosed via biopsy but is leaning strongly towards No. Patient will be admitted to PCU for pulmonary support and treatment. Will cover her PNA with Zosyn and Doxycyline, Sputum EOS sent, BioFIRE sent, PCT and CRP. Blood cultures were sent in the [facility]. With her hypoxia and her RR discussed case with Dr. Walker from pulmonary. Will give her steroids upfront at this time with 80mg Methylpred then 40mg IV BID starting tomorrow. If able to lay flat for CT scan of the chest would like to obtain. Will get X-ray of her foot to evaluate for osteo or foriegn object as this is very tender to surrounding area. No drainage or erythema around the site. Significant family history of pulmonary fibrosis per the patient. She has received her COVID vaccine and her COVID test on admission is NEGATIVE. Admission Exam Per Admitting Provider PHYSICAL EXAM: General: awake, alert, no apparent distress Head: Normocephalic, atraumatic ENT: PERRL, EOMI, no pharyngeal exudate, mucous membranes moist Neuro: AAO x 3, speech clear and appropriate, strength intact bilaterally 5/5, sensation intact and equal all extremities and dermatomes, no pronator drift Chest: equal rise and fall of the chest, tachypneic, scattered rhonchi, inspiratory wheeze in bases, decreased air movment in base, on 5LNC- to oxymask, Cardiac: Regular rate and rhythm, telemetry reviewed, skin warm dry, cap refill <3 seconds, peripheral pulses +2 no JVD, no murmur, no JVD, no edema GI: NABS x 4 quadrants, soft, nontender to palpation, no rebound, guarding or tenderness : Spontaneously voiding, no pain, no CVA tenderness, Extremities: Normal inspection, no peripheral edema or erythema, calfs nontender to palpation Psych: Normal mood and affect Skin: right foot blister- popped- tender to palpation plantar surface Principal Diagnosis Hypoxic Respiratory Failure 2/2 Interstitial PNA Discharge Exam General: A&Ox3. Nontoxic, No acute distress HEENT: Atraumatic, normocephalic. Visual acuity, hearing grossly intact. Pupils equal and reactive to light and accommodation Pulm: Moderate air movement without overt wheezes/rales/rhonchi. Symmetrical chest rise. No increase work of breathing. No respiratory distress. Cardiac: RRR, -mrg. Radial pulses intact and symmetrical. Abdominal: Nontender, nondistended, soft. BS present. Ext: Warm, Dry. Moving all extremities equally. 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 Discharge Data Allergies Allergy/AdvReac Type Severity Reaction Status Date / Time azithromycin Allergy Severe Entire Arm Unverified 02/20/21 10:55 Swelling Opioids - Morphine Analogues AdvReac Severe Vomiting/ Unverified 02/20/21 10:55 "It makes my skin crawl" Opioids-Meperidine and AdvReac Severe Vomiting/ Unverified 02/20/21 10:55 Related "It makes my skin crawl" Opioids-Methadone and Related AdvReac Severe Vomiting/ Unverified 02/20/21 10:55 "It makes my skin crawl" Consultations 02/20/21 11:51 ED Decision to Admit Stat 02/20/21 16:12 Consult Pulmonology Routine 02/22/21 11:25 Consult General Surgery Routine 02/23/21 07:58 Consult Orthopedic Surgery Routine Procedures Performed Operation Date: 02/25/21 10:00 Actual Procedures p Bronchoscopy Radiology(Not Applicable) - Pardeep Walker MD Ordered Studies 02/20/21 12:17 CT chest diagnostic wo con Routine Hospital Course (1) Hypoxia: Flaquita is a 55-year-old female with a past medical history of Sjogren's, asthma, rheumatoid arteritis, hypertension, pulmonary fibrosis, eosinophilic asthma, and interstitial pneumonia who presented to [facility] with tachypnea and shortness of breath with cough. She has a history of eosinophilic asthma, her progression and course was thought to be consistent with nonspecific interstitial pneumonia. To Do As Outpt: 1. Followup with PCP and with Pulmonary 2. Complete steroid taper 3. Followup reassessment of clinical course and oxygen needs Acute hypoxic respiratory failure 2/2 ILD versus pneumonia - Following admission treated with steroids with coverage for bacterial pna as noted below. Pulmonology consulted, recommended bronchosopy was performed 02/25. Signed off 02/27 - Bronch cytology was negative for fungal elements. No malignancy seen. Cultures with trace aspergillus felt to be spare leon, no evidence of systemic/cavitary/bronchietcic disease Procalcitonin negative, Legionella negative, bio fire negative, COVID-19 negative - [facility] pt greatly clinically improved. Was dc/ed on steroid taper with prednisone starting at 35 mg daily (3.5 10mg tablets) and decreasing by 5 mg (1/2 a 10mg tablet) every 3 days. - Home trelegy was converted to breo/spiriva, home trelegy continued on discharge. SPO2 goal greater than 90% - Pt completed 2 step, requires 2L at rest and 4L with ambulation and anticipate slow, gradual recovery with temporary home O2 needs. Oxygen setup provided at d/c. Scheduling for f/u with [facility] pulmonology pending, pt to f/u with PCP and Pulmonology within 1 wk and within 1 mo respectively. (2) Pneumonia: Improved - Viral vs. Bacterial vs. worsening of disease Leukocytosis downtrended during admission -Continue doxycycline, 7 day course completed 02/28 -Steroids as above for underlying? ?NSIP/ILD - CRP downtrending during admission - CT-C: Patchy areas of groundglass attenuation and septal thickening throughout bilateral lungs might represent multifocal atypical pneumonia/Covid. Short-term follow-up with CT of the chest without IV contrast on nonemergency basis in 4-6 weeks is suggested document resolution. Sputum culture as ntoed above (3) Eosinophilic asthma: Per patient - unsure of diagnostics- she also endorses that she never thinks she has had a bronchoscopy - Sputum EOS 1%, eval inconsistent with this dx, tx as interstitial pna as noted otherwise (4) Disorder of lung with Sjogren's syndrome: As above (5) Pulmonary fibrosis: Patient reports that she follows closely with her servicer travel trailers and her case is mild- - she has significant disease on her mother's side of the family and endorses 4- 5 of her siblings has from this - Xray faxed over from [facility] from January 02- reported as COPD with subplueral intersitial disease/fibroses stable without change. - NSIP tx as above - Continue outpt followup on d/c (6) HTN (hypertension): Continued clonidine and labetalol - ECHO performed in January 15, 2021 - report faxed from [facility] - EF 60-65%, normal wall motion, tricial MR, mild with moderate AR, Echo 02/21/2021: Normal LV SF, grade 1 diastolic dysfunction, mild aortic sclerosis, mild aortic regurg, EF 65-70% - Adequate BP control during admission, pt intermittently with anxiety which elevated BP which returned to normal limits (7) Foot abrasion: With blister as originating injury Wound care consulted. Routine care given. On d/c recommened 4x4 coverage with kerlex to secure, instructions provided and recommend f/u at wound care center on d/c, pt provided with care information and contact information (8) Rheumatoid arteritis: With contractures in hands that gets "worse when she is ill" - on hydroxychlorquine likely for both RA and Sjrogens- continued - Continued Naprosyn - Continued omeprazole - Steroids as noted otherwise (9) Hypokalemia: Due to decreased oral intake, improved and resolved during admission. Total Time Total Time Spent Total Time Spent (In Minutes): Time spend on dc including direct pt care, coordination of care, and review of labs and images was ~31 minutes. Discharge Plan Discharge Items Patient Disposition: Home - Self-Care Reason For Visit: PNEUMONIA, ASTHMA, RIGHT FOOT WOUND Discharge Diagnosis: Acute hypoxic respiratory failure Suspected nonspecific interstitial pneumonia Activity: Per Instructions section Non-emergency contact: Primary Care Provider and State Pilot Call non-emergency contact if: you have any medication questions, your symptoms worsen, your pain is not controlled, your pain is worsening and your pain is unusual for you Follow-up/Referrals: Matt Matthew M.D. [Outside Practitioners] - 03/12/21 9:45 am (Please follow up with Dr. Matthew on Thursday03/12/21 at 9:45 am. Please arrive to the office at 9:30 am for your appointment. If you are unable to keep this appointment, please call the office to reschedule at [phone].) Jonathan Munguia PA-C [Primary Care Provider] - Allan Rod [Outside Practitioners] - (Follow up appointment scheduled with Dr. Matthew.) Diet: Regular Addtl Attending Provider Instructions: You were seen in the hospital for shortness of breath and cough. You were treated for pneumonia and you are being discharged on medications as noted below. You will require further follow-up with both your primary care physician and pulmonology group, appointments as noted below. You are being discharged on a steroid medication, prednisone. You are taking prednisone 35 mg daily at time of discharge. Please continue to take prednisone once daily by mouth, starting at 35 mg daily (3.5 10mg tablets) and decreasing by 5 mg (1/2 a 10mg tablet) every 3 days. At follow-up with your primary care physician or servicer travel trailers they may wish to adjust or extend this taper based on your clinical condition. Your presentation was suspicious for nonspecific interstitial pneumonia. You were clinically stable but requiring oxygen at discharge, and have been discharged with home oxygen. It may take several weeks to recover. If you feel you are worsening rather than improving, please contact your primary care physician or servicer travel trailers, or call 911 to present to the emergency department for reevaluation if you are very concerned. You completed a course of antibiotics to cover for potential bacterial pneumonia. No additional antibiotics were prescribed at time of discharge. A followup appointment is being scheduled for you with your primary care provider Dr. Munguia. You should be seen seen within 1 week. You should receive a call to confirm this appointment. If you do not receive a call within 48 hours to confirm this appointment, or need to change this appointment, please call the provider's office at [phone]. A followup appointment is being scheduled for you with [facility] Pulmonology Dr. Rod. You should be seen seen within 2 weeks. You should receive a call to confirm this appointment. If you do not receive a call within 48 hours to confirm this appointment, or need to change this appointment, please call the provider's office at Dr. Mcguire in [facility]. If you develop any new or worsening symptoms including fever, chills, sweats, chest pain, chest pressure, difficulty breathing, uncontrolled nausea/vomiting, rash, wheezing, passing out or nearly passing out, bleeding, black/bloody bowel movements, or other new or concerning symptoms please call your primary care physician at [phone], or call 911 for re-evaluation in the emergency department if you are very concerned. Pending Studies at Discharge: No Stand-Alone Forms: My [facility], Smoking Cessation Medications and DC Order Prescriptions: New prednisone 10 mg tablet See Rx Instructions .ROUTE .COMPLEX Qty: 42 RF: 0 Continued ondansetron 4 mg Tablet,Disintegrating 4 mg PO Q8H PRN (Reason: Nausea) RF: 0 cetirizine 10 mg tablet 10 mg PO DAILY RF: 0 omeprazole 20 mg capsule,delayed release(DR/EC) 20 mg PO DAILY RF: 0 montelukast 10 mg tablet 10 mg PO PM RF: 0 clonidine 0.3 mg/24 hr patch weekly 0.3 mg topical WK RF: 0 hydroxychloroquine 200 mg tablet 200 mg PO BID RF: 0 labetalol 100 mg tablet 100 mg PO Q12H RF: 0 naproxen 500 mg tablet 1,000 mg PO DAILY RF: 0 budesonide-formoterol [Symbicort] 160-4.5 mcg/actuation HFA aerosol inhaler 2 puff INHALATION BID RF: 0 Discontinued cephalexin 500 mg capsule 500 mg PO QID RF: 0 Discharge Orders: Discharge Order (Routine); Ordered 03/01/21 Ordered By: Hugo Razo Admission Data Admit Date/Time: 02/20/21 12:51 Attending Provider: Hugo Razo Admit Provider: Jaylon Dc Primary Care Provider: Jonathan Munguia Other Providers: Lacey García ; Pardeep Walker ; Kennedy Giron ; Spencer Castillo ; Ran Song ; Bryan Macias Jr ; Moses Whitney ; Uriel Giraldo ; Matilde Abdi ; Miles Esteban ; Chaparro Newton ; Clement Vega ; Jose Kuhn ; Elton Grijalva ; Ariadna Nuñez ; Pernell Pineda ; Savanah Leggett ; Ankush Hernandez ; Aric Padgett ; Carlos Dyer ; Alli Burnham ; Aric Mayo ; Davis Arrington ; Akin Bartholomew ; Damien Jensen ; Miguel Cannon ; Savanah Lr ; Jovanny Lake ; Dima Lucas ; Amy Zamora ; Moy Alva ; Nuris Lyon Other Interventions: Discharge Summary Assessment (RN) Last Done: 03/01/21 12:14 Coding Level of Care Code D/C DAY MANAGEMENT >30 MINS Diagnoses Hypoxia R09.02 Pneumonia J18.9 Eosinophilic asthma J82.83 Disorder of lung with Sjogren's syndrome M35.02 Pulmonary fibrosis J84.10 HTN (hypertension) I10 Foot abrasion S90.819A Rheumatoid arteritis M05.20 Hypokalemia E87.6
[2021-03-07 20:40] LABS: Legionella Culture Source LUNG; Source LUNG
== END 2021-03-01 12:58 | disposition home health service (06) | DRG 196 ==
LOC: ED 09:16 → 2S 12:51 → SUATTDRO 12:51 → 2S 14:34
DX: G47.00 Insomnia, unspecified; Z79.1 Long term (current) use of non-steroidal anti-inflammatories (NSAID); J43.9 Emphysema, unspecified; E87.6 Hypokalemia; Z87.891 Personal history of nicotine dependence; Z88.1 Allergy status to other antibiotic agents; K21.9 Gastro-esophageal reflux disease without esophagitis; Y93.01 Activity, walking, marching and hiking; J84.10 Pulmonary fibrosis, unspecified; L08.9 Local infection of the skin and subcutaneous tissue, unspecified; Z20.828 Contact with and (suspected) exposure to other viral communicable diseases; F41.9 Anxiety disorder, unspecified; J82.83 Eosinophilic asthma; M05.20 Rheumatoid vasculitis with rheumatoid arthritis of unspecified site; Z79.899 Other long term (current) drug therapy; S90.819A Abrasion, unspecified foot, initial encounter; M24.541 Contracture, right hand; I10 Essential (primary) hypertension; M35.02 Sjogren syndrome with lung involvement; Z88.5 Allergy status to narcotic agent; M24.542 Contracture, left hand; Y92.828 Other wilderness area as the place of occurrence of the external cause; S90.821A Blister (nonthermal), right foot, initial encounter; J96.01 Acute respiratory failure with hypoxia; Z79.51 Long term (current) use of inhaled steroids